=== PATIENT | female | born 1950 | race Caucasian/White ===

== ENCOUNTER 2017-02-24 12:04 | Emergency (ER) | payer MEDICARE, OTHER ==
[~2017-02-24] VITALS: Ht 152.4 cm; Wt 86.2 kg
[~2017-02-24 12:04] MED LIST: ALORA TP; AMT25T; ASCO-273 PO; ASP81TEC PO; ATEN25TA PO; ATOR20TA66 PO; ATR20T PO; C250T; CEPH-507 PO; CHOL4PAC19 PO; CIPR-225 PO; CLD600T PO; D50KC PO; DARI15TA4 PO; DVL500TSR PO; EQUATE ALLERGY MED PO; ESTR1TAB27 PO; ESTR42.52 VG; FAMO1TAB21 PO; FIBER CHOICE; FISH OIL; FLUT16SP22 NSEACH; FOLIC ACID; FURO40TA4 PO; GLIM2TAB PO; GLUCO/CHON; GUAI1TBM7 PO; HYDR1TAB86 PO; LEVO125T6 PO; LIRA0.6P SQ; LVT.1T PO; METF750T2 PO; MGX400T; MIRA50TA PO; MTF500T PO; MULT1TAB63 PO; NF-SITA50T PO; NFCHLORHGL; NITR-65 PO; NITR100C44 PO; NYST60PO TP; PHEN200T27 PO; PNT40TEC; POTA10CA43 PO; QUET300T PO; RABE20TA PO; SALINE NASAL SPRAY; SITA100T PO; SMV20T; SOLI10TA4 PO; TOLTA4; TPR25T; TRAV5DRO OU; TRIMOX; VENL150C53 PO; VNL75CCR; VNL75CCR PO; ZLP10T; [UNRECOGNIZED DRUG - OTHER]; [UNRECOGNIZED DRUG - OTHER]; [UNRECOGNIZED DRUG - OTHER]
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
[2017-02-24 12:14] LABS: BASOPHILS % (AUTO) 0 % (0-10); EOSINOPHILS # (AUTO) 0.2 10^3/uL (0.0-0.3); EOSINOPHILS % (AUTO) 2 % (0-10); LYMPHOCYTES % (AUTO) 42 % (12-44); MEAN CORPUSCULAR HEMOGLOBIN 30 PG (25-34); MEAN CORPUSCULAR HGB CONC 33 G/DL (32-36); MEAN CORPUSCULAR VOLUME 93 FL (80-99); MEAN PLATELET VOLUME 9.5 FL (7.4-10.4); MONOCYTES % (AUTO) 11 % (0-12); NEUTROPHILS # (AUTO) 4.2 X 10^3 (1.8-7.8); NEUTROPHILS % (AUTO) 45 % (42-75); PLATELET COUNT 264 10^3/uL (130-400); RED BLOOD COUNT 4.62 10^6/uL (4.35-5.85); RED CELL DISTRIBUTION WIDTH 13.2 % (10.0-14.5); WHITE BLOOD COUNT 9.4 10^3/uL (4.3-11.0)
[2017-02-24 12:28] LABS: INR 0.9 (0.8-1.4); PROTHROMBIN TIME PATIENT 11.8 SEC (12.2-14.7)
[2017-02-24 12:36] LABS: ANION GAP 12 MMOL/L (5-14); BLOOD UREA NITROGEN 14 MG/DL (7-18); BUN/CREATININE RATIO 20; CALCIUM 9.5 MG/DL (8.5-10.1); CARBON DIOXIDE 28 MMOL/L (21-32); CHLORIDE 103 MMOL/L (98-107); CREATININE SERUM 0.71 MG/DL (0.60-1.30); GFR ESTIMATED > 60; POTASSIUM 3.8 MMOL/L (3.6-5.0); SODIUM 143 MMOL/L (135-145)
[2017-02-24 12:38] LABS: GLUCOSE 54 MG/DL (70-105)
[2017-02-24 12:40] LABS: BILIRUBIN,URINE NEGATIVE (NEGATIVE); KETONES,URINE 1+ (NEGATIVE); LEUKOCYTE ESTERASE ,URINE 3+ (NEGATIVE); NITRITE,URINE NEGATIVE (NEGATIVE); PH,URINE 6 (5-9); PROTEIN,URINE 2+ (NEGATIVE); UROBILINOGEN,URINE NORMAL (NORMAL)
[2017-02-24 12:51] LABS: WBC,URINE 50-100 /HPF
[2017-02-24] MEDS: DEXTROSE 50% 50 ML (IMS) SYR IV ONE (12:54)
[2017-02-24] MEDS: cefTRIAXone INJECTION 1,000 MG in NS (IVPB) 50 ML IV ONE (13:27)
--- NOTE | 2017-02-24 13:32 | Diagnostic Imaging Report ---
PROCEDURE: CT head and CT cervical spine without contrast. TECHNIQUE: Multiple contiguous axial images were obtained through the brain and cervical spine without the use of intravenous contrast. Sagittal and coronal reformations through the cervical spine were then performed. INDICATION: Fall. CT HEAD / FINDINGS: There is no intracranial hemorrhage, edema or mass-effect. There is periventricular and deep white matter hypodensities compatible with chronic microvascular ischemic changes. There is stable mild dilatation of the lateral ventricles out of proportion to the rest of the CSF spaces which could correlate with normal pressure hydrocephalus. There is diffuse thickening of the calvarium seen, stable from prior exam. The visualized portions of the paranasal sinuses and orbits appear grossly unremarkable. CT CERVICAL SPINE / FINDINGS: There is reversal of the lordotic curvature. The alignment of the posterior spinal line is satisfactory. The alignment at the facet joints is also satisfactory. There is no widening of the predental space. Satisfactory alignment of the lateral masses of C1 and C2 and the atlantooccipital joints is seen. The vertebral body heights are preserved. Disc heights are generally preserved. There are slightly prominent anterior osteophytes noted at C5/6 and C6-7 levels. There is a prominent facet joint arthropathy with multilevel neural foramina stenosis. No fracture is seen. IMPRESSION: CT HEAD: Slight enlargement of the lateral ventricles out of proportion to the rest of the CSF spaces, may correlate with normal pressure hydrocephalus. White matter chronic ischemic changes. No intracranial hemorrhage. CT CERVICAL SPINE: Prominent degenerative changes. No fracture seen. Dictated by: Dictated on workstation # [id number]
[2017-02-24] MEDS ORDERED: CEFU250T80 PO (13:51)
[2017-02-24 14:00] VITALS: BP 103/56
== END 2017-02-24 14:00 | disposition home or self-care (01) ==
LOC: EDUNIT# 12:04 → ER 12:05
DX: S09.90XA Unspecified injury of head, initial encounter (principal); N39.0 Urinary tract infection, site not specified; E11.9 Type 2 diabetes mellitus without complications; Z79.84 Long term (current) use of oral hypoglycemic drugs; Z79.899 Other long term (current) drug therapy; Z87.820 Personal history of traumatic brain injury
CPT/HCPCS: 36415; 70450; 72125; 80048; 81000; 82962; 85025; 85610; 87077; 87088; 87186

== ENCOUNTER 2017-11-30 00:57 | Emergency (ER) | payer MEDICARE, OTHER ==
[~2017-11-30] VITALS: Ht 152.4 cm; Wt 79.4 kg
[~2017-11-30 00:57] MED LIST changes: +ALBI30PE; +ATOR40TA70; +CEFU250T80 PO; +DESM0.2T2; +IMIP50TA4; +NF-ACI30T PO
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
[2017-11-30] MEDS ORDERED: KETOROLAC 60 MG/2 ML VIAL IM ONE (02:30)
[2017-11-30] MEDS ORDERED: RX-TRAMADOL 50 MG (ULTRAM) TAB PPK#4 PO STA (02:47)
[2017-11-30] MEDS ORDERED: TRAM-42 PO (02:50)
[2017-11-30 02:53] VITALS: BP 104/90
--- NOTE | 2017-11-30 06:44 | Diagnostic Imaging Report ---
INDICATION: Fall with back pain. Multiple contiguous axial CT images of the thoracic and lumbar spine are obtained with sagittal and coronal reformatted images produced. Thoracic spine: Thoracic spinal curvature and alignment are within normal limits. There is diffuse endplate spurring with prominent osteophytes in the mid to lower thoracic region. No fracture is seen. There is no evidence of paraspinous hematoma. IMPRESSION: Thoracic spondylosis without acute abnormality identified. CT lumbar spine: There is advanced degenerative facet arthropathy at L5-S1 with grade 1 anterolisthesis of L5 on S1. Otherwise curvature and alignment are unremarkable. There is no evidence of fracture, dislocation or paraspinous hematoma. IMPRESSION: Lumbar spondylosis most pronounced at L5-S1 without acute abnormality detected. Dictated by: Dictated on workstation # [id number]
--- NOTE | 2017-11-30 07:00 | Diagnostic Imaging Report ---
PROCEDURE: CT head and CT cervical spine without contrast. TECHNIQUE: Multiple contiguous axial images were obtained through the brain and cervical spine without the use of intravenous contrast. Sagittal and coronal reformations through the cervical spine were then performed. INDICATION: Fall. Pain. COMPARISON: 02/24/2017. FINDINGS: Head CT: No acute intracranial hemorrhage, mass effect or edema is seen. There is diffuse atrophy. The ventricles are prominent but proportionate to degree of atrophy. Scattered areas of hypodensity in the periventricular white matter are likely related to chronic microvascular ischemic change. The paranasal sinuses and mastoids are clear as visualized. No evidence of basal skull fracture. Cervical spine CT: There is straightening of the normal cervical lordosis which is nonspecific but may be positional or muscular. No additional malalignment is seen. No acute fracture or osseous destructive process is seen. Vertebral body heights appear maintained. There is disc space narrowing and endplate spurring at C4-C5, C5-C6 and C6-C7. There is fairly prominent facet arthropathy throughout the cervical spine with multiple levels of foraminal stenosis. The prevertebral soft tissues appear unremarkable. IMPRESSION: 1. No evidence of an acute intracranial abnormality. Chronic senescent changes. 2. No evidence of an acute cervical spine fracture. Degenerative changes as described. Agree with [facility] interpretation. Dictated by: Dictated on workstation # [id number]
--- NOTE | 2017-11-30 07:00 | Diagnostic Imaging Report ---
PROCEDURE: CT pelvis without contrast. TECHNIQUE: Multiple contiguous axial images were obtained through the pelvis without the use of intravenous contrast. Sagittal and coronal reformations were performed. INDICATION: Fall. Pain. COMPARISON: 07/29/2017. FINDINGS: There is a new compound fracture of the lower sacrum just above the coccyx involving the anterior and posterior elements of the sacrum. There is minimal ventral displacement of the distal fragments. No additional acute fractures seen. There are postoperative changes from hardware removal in the proximal right femur. There are degenerative changes of the sacroiliac joints. There are degenerative changes in the visualized lower lumbar spine. IMPRESSION: Minimally displaced fracture of the distal sacrum just above the coccyx involving the anterior and posterior elements. Agree with [facility] interpretation. Dictated by: Dictated on workstation # [id number]
== END 2017-11-30 02:53 | disposition home or self-care (01) ==
LOC: EDUNIT# 00:57 → ER 00:59
DX: S06.9X9A Unspecified intracranial injury with loss of consciousness of unspecified duration, initial encounter (principal); S32.10XA Unspecified fracture of sacrum, initial encounter for closed fracture; R40.2142 Coma scale, eyes open, spontaneous, at arrival to emergency department; R40.2252 Coma scale, best verbal response, oriented, at arrival to emergency department; R40.2362 Coma scale, best motor response, obeys commands, at arrival to emergency department; F32.9 Major depressive disorder, single episode, unspecified; E03.9 Hypothyroidism, unspecified; I10 Essential (primary) hypertension; J45.909 Unspecified asthma, uncomplicated; G47.30 Sleep apnea, unspecified; E11.9 Type 2 diabetes mellitus without complications; K21.9 Gastro-esophageal reflux disease without esophagitis; K58.9 Irritable bowel syndrome, unspecified; F03.90 Unspecified dementia, unspecified severity, without behavioral disturbance, psychotic disturbance, mood disturbance, and anxiety; E78.00 Pure hypercholesterolemia, unspecified; Z77.22 Contact with and (suspected) exposure to environmental tobacco smoke (acute) (chronic); Z90.89 Acquired absence of other organs; Z90.710 Acquired absence of both cervix and uterus; Z87.81 Personal history of (healed) traumatic fracture; Z87.820 Personal history of traumatic brain injury; Z79.84 Long term (current) use of oral hypoglycemic drugs; Z88.5 Allergy status to narcotic agent
CPT/HCPCS: 70450; 72125; 72128; 72131; 72192; 96372

== ENCOUNTER 2018-02-05 02:01 | Emergency (ER) | payer MEDICARE, OTHER ==
[~2018-02-05] VITALS: Ht 152.4 cm; Wt 79.4 kg
[~2018-02-05 02:01] MED LIST changes: +TRAM-42 PO
--- OUTSIDE RECORDS SUMMARY | 2018-02-05 02:09 | XMS REPORT | Continuity of Care Document ---
Author Author [facility] Organization [facility] Address Unknown Phone Unavailable Allergies Active Description Code Type Severity Reaction Onset Reported/Identified Relationship to Patient Clinical Status Yes morphine [id number] Drug Allergy Unknown N/A 08/01/2008 Medications There is no data. Problems Date Dx Coded Attending Type Code Diagnosis Diagnosed By 03/24/2012 Ot 250.00 DIAB YORDY WO COMPL, TYPE II OR UNSPEC TY 03/24/2012 Ot 278.00 OBESITY, NOS 03/24/2012 Ot 285.9 ANEMIA NOS 03/24/2012 Ot 401.9 HYPERTENSION NOS 03/24/2012 Ot 493.90 ASTHMA, UNSPECIFIED 03/24/2012 Ot 780.57 UNSPECIFIED SLEEP APNEA 03/24/2012 Ot 782.0 SKIN SENSATION DISTURB 03/24/2012 Ot 786.09 RESPIRATORY ABNORM NEC 03/24/2012 Ot V17.49 FAMILY HISTORY OF OTHER CARDIOVASCULAR D 03/24/2012 Ot V58.69 OTH MED,LT, CURRENT USE 03/24/2012 Ot V85.41 BODY MASS INDEX 40.0-44.9, ADULT 08/09/2014 FELISA NAVAS DO Ot V76.12 08/19/2014 Ot V58.69 08/19/2014 Ot V58.83 08/19/2014 Ot 331.4 08/19/2014 Ot 349.89 08/19/2014 Ot V15.59 08/19/2014 Ot 793.0 08/19/2014 Ot 376.30 08/19/2014 Ot V81.5 08/19/2014 Ot V76.12 08/19/2014 Ot V58.69 08/19/2014 Ot V58.83 08/19/2014 Ot V76.12 08/19/2014 Ot V76.12 08/19/2014 Ot 681.00 08/19/2014 Ot 906.4 08/19/2014 Ot E929.9 08/19/2014 Ot 250.02 08/19/2014 Ot 729.5 08/19/2014 Ot 413.9 08/19/2014 Ot 272.4 08/19/2014 Ot 401.9 08/19/2014 Ot 780.79 08/19/2014 Ot 786.05 08/19/2014 Ot 794.30 08/19/2014 Ot V58.69 08/19/2014 Ot 458.0 08/19/2014 Ot 780.4 08/19/2014 Ot V76.12 08/19/2014 Ot 721.0 08/19/2014 Ot 599.70 08/19/2014 Ot 625.9 08/19/2014 Ot 789.09 08/19/2014 BA NAVAS SUSTAINMENT LOGISTICS ANALYST Ot V76.12 08/19/2014 DEREK CASEY, ADIS Ot 250.12 08/19/2014 FELISA NAVAS DO Ot V76.12 11/04/2014 BA NAVAS SUSTAINMENT LOGISTICS ANALYST Ot 331.4 11/04/2014 Ot V76.12 11/04/2014 Ot V58.69 11/04/2014 Ot V58.83 11/04/2014 Ot V76.12 11/04/2014 Ot V76.12 11/04/2014 Ot 681.00 11/04/2014 Ot 906.4 11/04/2014 Ot E929.9 11/04/2014 Ot 250.02 11/04/2014 Ot 729.5 11/04/2014 Ot 413.9 11/04/2014 Ot 272.4 11/04/2014 Ot 401.9 11/04/2014 Ot 780.79 11/04/2014 Ot 786.05 11/04/2014 Ot 794.30 11/04/2014 Ot V58.69 11/04/2014 Ot 458.0 11/04/2014 Ot 780.4 11/04/2014 Ot V76.12 11/04/2014 Ot 721.0 11/04/2014 Ot 599.70 11/04/2014 Ot 625.9 11/04/2014 Ot 789.09 11/04/2014 BA NAVAS SUSTAINMENT LOGISTICS ANALYST Ot V76.12 11/04/2014 DEREK CASEY, ADIS Ot 250.12 11/04/2014 FELISA NAVAS DO Ot V76.12 11/04/2014 BA NAVAS SUSTAINMENT LOGISTICS ANALYST Ot 331.4 11/04/2014 BA NAVASP Ot 331.4 11/04/2014 AB NAVAS SUSTAINMENT LOGISTICS ANALYST Ot 331.4 11/12/2014 BA NAVAS SUSTAINMENT LOGISTICS ANALYST Ot 331.4 11/18/2014 Ot V58.69 11/18/2014 Ot V58.83 11/18/2014 Ot V76.12 11/18/2014 Ot V76.12 11/18/2014 Ot 681.00 11/18/2014 Ot 906.4 11/18/2014 Ot E929.9 11/18/2014 Ot 250.02 11/18/2014 Ot 729.5 11/18/2014 Ot 413.9 11/18/2014 Ot 272.4 11/18/2014 Ot 401.9 11/18/2014 Ot 780.79 11/18/2014 Ot 786.05 11/18/2014 Ot 794.30 11/18/2014 Ot V58.69 11/18/2014 Ot 458.0 11/18/2014 Ot 780.4 11/18/2014 Ot V76.12 11/18/2014 Ot 721.0 11/18/2014 Ot 599.70 11/18/2014 Ot 625.9 11/18/2014 Ot 789.09 11/18/2014 BA NAVAS SUSTAINMENT LOGISTICS ANALYST Ot V76.12 11/18/2014 ADIS REED MD Ot 250.12 11/18/2014 FELISA NAVAS DO Ot V76.12 11/18/2014 BA NAVASP Ot 331.4 11/18/2014 Ot 596.51 11/18/2014 Ot 599.82 11/18/2014 Ot 788.30 11/18/2014 Ot V72.63 11/18/2014 Ot V74.8 11/18/2014 Ot V58.69 11/18/2014 Ot V58.83 11/18/2014 Ot V76.12 11/18/2014 Ot V76.12 11/18/2014 Ot 681.00 11/18/2014 Ot 906.4 11/18/2014 Ot E929.9 11/18/2014 Ot 250.02 11/18/2014 Ot 729.5 11/18/2014 Ot 413.9 11/18/2014 Ot 272.4 11/18/2014 Ot 401.9 11/18/2014 Ot 780.79 11/18/2014 Ot 786.05 11/18/2014 Ot 794.30 11/18/2014 Ot V58.69 11/18/2014 Ot 458.0 11/18/2014 Ot 780.4 11/18/2014 Ot V76.12 11/18/2014 Ot 721.0 11/18/2014 Ot 599.70 11/18/2014 Ot 625.9 11/18/2014 Ot 789.09 11/18/2014 BA NAVAS SUSTAINMENT LOGISTICS ANALYST Ot V76.12 11/18/2014 ADIS REED MD Ot 250.12 11/18/2014 FELISA NAVAS DO Ot V76.12 11/18/2014 BA NAVAS SUSTAINMENT LOGISTICS ANALYST Ot 331.4 11/18/2014 Ot 596.51 11/18/2014 Ot 599.82 11/18/2014 Ot 788.30 11/18/2014 Ot V72.63 11/18/2014 Ot V74.8 11/18/2014 Ot 250.00 DIAB YORDY WO COMPL, TYPE II OR UNSPEC TY 11/18/2014 Ot 401.9 HYPERTENSION NOS 11/18/2014 Ot 596.51 HYPERTONICITY OF BLADDER 11/18/2014 Ot 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 11/18/2014 Ot 788.30 UNSPECIFIED URINARY INCONTINENCE 11/21/2014 BA NAVAS SUSTAINMENT LOGISTICS ANALYST Ot 331.4 12/20/2014 BA NAVAS SUSTAINMENT LOGISTICS ANALYST Ot 331.4 01/01/2015 Ot 596.51 01/01/2015 Ot 599.82 01/01/2015 Ot 788.30 01/01/2015 Ot V72.63 01/01/2015 Ot V74.8 03/22/2015 BA NAVAS SUSTAINMENT LOGISTICS ANALYST Ot 331.4 04/18/2015 Ot V58.69 04/18/2015 Ot V58.83 04/18/2015 Ot V76.12 04/18/2015 Ot V76.12 04/18/2015 Ot 681.00 04/18/2015 Ot 906.4 04/18/2015 Ot E929.9 04/18/2015 Ot 250.02 04/18/2015 Ot 729.5 04/18/2015 Ot 413.9 04/18/2015 Ot 272.4 04/18/2015 Ot 401.9 04/18/2015 Ot 780.79 04/18/2015 Ot 786.05 04/18/2015 Ot 794.30 04/18/2015 Ot V58.69 04/18/2015 Ot 458.0 04/18/2015 Ot 780.4 04/18/2015 Ot V76.12 04/18/2015 Ot 721.0 04/18/2015 Ot 599.70 04/18/2015 Ot 625.9 04/18/2015 Ot 789.09 04/18/2015 BA NAVAS SUSTAINMENT LOGISTICS ANALYST Ot V76.12 04/18/2015 ADIS REED MD Ot 250.12 04/18/2015 FELISA NAVAS DO Ot V76.12 04/18/2015 BA NAVAS SUSTAINMENT LOGISTICS ANALYST Ot 331.4 04/18/2015 Ot 596.51 04/18/2015 Ot 599.82 04/18/2015 Ot 788.30 04/18/2015 Ot V72.63 04/18/2015 Ot V74.8 06/18/2015 JEFF CASEY, ROSY Anderson Ot 596.51 HYPERTONICITY OF BLADDER 06/18/2015 JEFF CASEY, ROSY Anderson Ot 599.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 06/18/2015 JEFF CASEY, ROSY Anderson Ot 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, MIDLINE 06/18/2015 ROSY AGUILAR MD Ot 788.30 UNSPECIFIED URINARY INCONTINENCE 06/18/2015 ROSY AGUILAR MD Ot V58.69 OT MED,LT,CURRENT USE 07/02/2015 ROSY AGUILAR MD Ot 596.51 07/02/2015 ROSY AGUILAR MD Ot 599.82 07/02/2015 ROSY AGUILAR MD Ot 788.30 07/02/2015 ROSY AGUILAR MD Ot V72.63 07/02/2015 ROSY AGUILAR MD Ot V74.8 07/21/2015 Ot V76.12 07/21/2015 Ot V76.12 07/21/2015 Ot 681.00 07/21/2015 Ot 906.4 07/21/2015 Ot E929.9 07/21/2015 Ot 250.02 07/21/2015 Ot 729.5 07/21/2015 Ot 413.9 07/21/2015 Ot 272.4 07/21/2015 Ot 401.9 07/21/2015 Ot 780.79 07/21/2015 Ot 786.05 07/21/2015 Ot 794.30 07/21/2015 Ot V58.69 07/21/2015 Ot 458.0 07/21/2015 Ot 780.4 07/21/2015 Ot V76.12 07/21/2015 Ot 721.0 07/21/2015 Ot 599.70 07/21/2015 Ot 625.9 07/21/2015 Ot 789.09 07/21/2015 BA NAVAS SUSTAINMENT LOGISTICS ANALYST Ot V76.12 07/21/2015 DEREK CASEY, ADIS Ot 250.12 07/21/2015 FELISA NAVAS DO Ot V76.12 07/21/2015 BA NAVAS SUSTAINMENT LOGISTICS ANALYST Ot 331.4 07/21/2015 Ot 596.51 07/21/2015 Ot 599.82 07/21/2015 Ot 788.30 07/21/2015 Ot V72.63 07/21/2015 Ot V74.8 07/21/2015 JEFF CASEY, ROSY Anderson Ot 596.51 07/21/2015 JEFF CASEY, ROSY Anderson Ot 599.82 07/21/2015 JEFF CASEY, ROSY Anderson Ot 788.30 07/21/2015 JEFF CASEY, ROSY Anderson Ot V72.63 07/21/2015 JEFF CASEY, ROSY Anderson Ot V74.8 08/13/2015 BA NAVASP Ot N64.4 08/26/2015 Ot V76.12 08/26/2015 Ot V76.12 08/26/2015 Ot 681.00 08/26/2015 Ot 906.4 08/26/2015 Ot E929.9 08/26/2015 Ot 250.02 08/26/2015 Ot 729.5 08/26/2015 Ot 413.9 08/26/2015 Ot 272.4 08/26/2015 Ot 401.9 08/26/2015 Ot 780.79 08/26/2015 Ot 786.05 08/26/2015 Ot 794.30 08/26/2015 Ot V58.69 08/26/2015 Ot 458.0 08/26/2015 Ot 780.4 08/26/2015 Ot V76.12 08/26/2015 Ot 721.0 08/26/2015 Ot 599.70 08/26/2015 Ot 625.9 08/26/2015 Ot 789.09 08/26/2015 BA NAVAS SUSTAINMENT LOGISTICS ANALYST Ot V76.12 08/26/2015 DEREK CASEY, ADIS Ot 250.12 08/26/2015 FELISA NAVAS DO Ot V76.12 08/26/2015 BA NAVAS SUSTAINMENT LOGISTICS ANALYST Ot 331.4 08/26/2015 Ot 596.51 08/26/2015 Ot 599.82 08/26/2015 Ot 788.30 08/26/2015 Ot V72.63 08/26/2015 Ot V74.8 08/26/2015 JEFF CASEY, ROSY Anderson Ot 596.51 08/26/2015 JEFF CASEY, ROSY Anderson Ot 599.82 08/26/2015 JEFF CASEY, ROSY Anderson Ot 788.30 08/26/2015 JEFF CASEY, ROSY Anderson Ot V72.63 08/26/2015 JEFF CASEY, ROSY Anderson Ot V74.8 08/26/2015 BA NAVAS SUSTAINMENT LOGISTICS ANALYST Ot N64.4 08/28/2015 BA NAVAS SUSTAINMENT LOGISTICS ANALYST Ot N64.4 06/29/2016 Ot V76.12 OTH SCREEN MAMMO-MALIGN NEOPLASM OF YENNI 06/29/2016 Ot 681.00 CELLULITIS, FINGER NOS 06/29/2016 Ot 906.4 LATE EFFECT OF CRUSHING 06/29/2016 Ot E929.9 LATE EFF ACCIDENT NOS 06/29/2016 Ot 250.02 DIAB YORDY WO COMPL, TYPE II OR UNSPEC TY 06/29/2016 Ot 729.5 PAIN IN LIMB 06/29/2016 Ot 413.9 ANGINA PECTORIS NEC/NOS 06/29/2016 Ot 272.4 HYPERLIPIDEMIA NEC/NOS 06/29/2016 Ot 401.9 HYPERTENSION NOS 06/29/2016 Ot 780.79 OTH MALAISE FATIGUE 06/29/2016 Ot 786.05 SHORTNESS OF BREATH 06/29/2016 Ot 794.30 ABN CARDIOVASC STUDY NOS 06/29/2016 Ot V58.69 OTH MED,LT, CURRENT USE 06/29/2016 Ot 458.0 ORTHOSTATIC HYPOTENSION 06/29/2016 Ot 780.4 DIZZINESS AND GIDDINESS 06/29/2016 Ot V76.12 OTH SCREEN MAMMO-MALIGN NEOPLASM OF YENNI 06/29/2016 Ot 721.0 CERVICAL SPONDYLOSIS 06/29/2016 Ot 599.70 HEMATURIA, UNSPECIFIED 06/29/2016 Ot 625.9 FEM GENITAL SYMPTOMS NOS 06/29/2016 Ot 789.09 ABDOMINAL PAIN, OTHER SPECIFIED SITE 06/29/2016 BA NAVAS SUSTAINMENT LOGISTICS ANALYST Ot V76.12 OTH SCREEN MAMMO-MALIGN NEOPLASM OF YENNI 06/29/2016 DEREK CASEY, ADIS Ot 250.12 DIAB W KETOACIDOSIS, TYPE II OR UNSPEC T 06/29/2016 FELISA NAVAS DO Ot V76.12 OTH SCREEN MAMMO-MALIGN NEOPLASM OF YENNI 06/29/2016 BA NAVASP Ot 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 06/29/2016 Ot 596.51 HYPERTONICITY OF BLADDER 06/29/2016 Ot 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 06/29/2016 Ot 788.30 UNSPECIFIED URINARY INCONTINENCE 06/29/2016 Ot V72.63 PRE- PROCEDURAL LABORATORY EXAMINATION 06/29/2016 Ot V74.8 SCREEN- BACTERIAL DIS NEC 06/29/2016 ROSY AGUILAR MD Ot 596.51 HYPERTONICITY OF BLADDER 06/29/2016 ROSY AGUILAR MD Ot 599.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 06/29/2016 ROSY AGUILAR MD Ot 788.30 UNSPECIFIED URINARY INCONTINENCE 06/29/2016 ROSY AGUILAR MD Ot V72.63 PRE-PROCEDURAL LABORATORY EXAMINATION 06/29/2016 ROSY AGUILAR MD Ot V74.8 SCREEN-BACTERIAL DIS NEC 06/29/2016 BA NAVAS SUSTAINMENT LOGISTICS ANALYST Ot N64.4 MASTODYNIA 06/29/2016 GIOVANA SHARMA MD Ot E11.9 TYPE 2 DIABETES MELLITUS WITHOUT COMPLIC 06/29/2016 GIOVANA SHARMA MD, Ot 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 W/O MYELOPATHY OR RADICULOPA 06/29/2016 GIOVANA SHARMA MD, Ot M85.2 HYPEROSTOSIS OF SKULL 06/29/2016 GIOVANA SHARMA MD, Ot S19.9XXA UNSPECIFIED INJURY OF NECK, INITIAL ENCO 06/29/2016 GIOVANA SHARMA MD Ot W01.0XXA FALL SAME LEV FROM SLIP/TRIP W/O STRIKE 06/29/2016 GIOVANA SHARMA MD, Ot Y92.[address] [facility] 06/29/2016 GIOVANA SHARMA MD, Ot Y99.8 OTHER EXTERNAL CAUSE STATUS 06/29/2016 GIOVANA SHARMA MD, Ot Z79.899 OTHER [facility] (CURRENT) DRUG THERAPY 06/29/2016 GIOVANA SHARMA MD, Ot Z87.820 PERSONAL HISTORY OF TRAUMATIC BRAIN INJU 06/30/2016 GIOVANA SHARMA MD, Ot E11.9 TYPE 2 DIABETES MELLITUS WITHOUT COMPLIC 06/30/2016 GIOVANA SHARMA MD, Ot 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 W/O MYELOPATHY OR RADICULOPA 06/30/2016 GIOVANA SHARMA MD, Ot M85.2 HYPEROSTOSIS OF SKULL 06/30/2016 GIOVANA SHARMA MD, Ot S19.9XXA UNSPECIFIED INJURY OF NECK, INITIAL ENCO 06/30/2016 GIOVANA SHARMA MD, Ot W01.0XXA FALL SAME LEV FROM SLIP/TRIP W/O STRIKE 06/30/2016 GIOVANA SHARMA MD, Ot Y92.[address] [facility] ([facility] 06/30/2016 GIOVANA SHARMA MD, Ot Y99.8 OTHER EXTERNAL CAUSE STATUS 06/30/2016 GIOVANA SHARMA MD, Ot 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 06/30/2016 GIOVANA SHARMA MD, Ot Z87.820 PERSONAL HISTORY OF TRAUMATIC BRAIN INJU 08/26/2016 RAGHU ZAIDI MD Ot E11.9 TYPE 2 DIABETES MELLITUS WITHOUT COMPLIC 08/26/2016 RAGHU ZAIDI MD Ot I10 ESSENTIAL (PRIMARY) HYPERTENSION 08/26/2016 RAGHU ZAIDI MD Ot M47.819 SPONDYLOSIS WITHOUT MYELOPATHY OR RADICU 08/26/2016 RAGHU ZAIDI MD Ot N39.0 URINARY TRACT INFECTION, SITE NOT SPECIF 08/26/2016 RAGHU ZAIDI MD Ot S00.03XA CONTUSION OF SCALP, INITIAL ENCOUNTER 08/26/2016 RAGHU ZAIDI MD Ot S09.90XA UNSPECIFIED INJURY OF HEAD, INITIAL ENCO 08/26/2016 RAGHU ZAIDI MD Ot W01.0XXA FALL SAME LEV FROM SLIP/TRIP W/O STRIKE 08/26/2016 RAGHU ZAIDI MD Ot Y92.[address] [facility] NON-INSTITUT (PRIVATE 08/26/2016 RAGHU ZAIDI MD Ot Y93.9 ACTIVITY, UNSPECIFIED 08/26/2016 RAGHU ZAIDI MD Ot Y99.8 OTHER EXTERNAL CAUSE STATUS 08/26/2016 RAGHU ZAIDI MD Ot Z79.84 [facility] (CURRENT) USE OF ORAL HYPOGLYC 08/26/2016 RAGHU ZAIDI MD Ot Z79.899 OTHER [facility] (CURRENT) DRUG THERAPY 08/26/2016 RAGHU ZAIDI MD Ot Z87.820 PERSONAL HISTORY OF TRAUMATIC BRAIN INJU 08/26/2016 Ot V76.12 OTH SCREEN MAMMO-MALIGN NEOPLASM OF YENNI 08/26/2016 Ot 681.00 CELLULITIS, FINGER NOS 08/26/2016 Ot 906.4 LATE EFFECT OF CRUSHING 08/26/2016 Ot E929.9 LATE EFF ACCIDENT NOS 08/26/2016 Ot 250.02 DIAB YORDY WO COMPL, TYPE II OR UNSPEC TY 08/26/2016 Ot 729.5 PAIN IN LIMB 08/26/2016 Ot 413.9 ANGINA PECTORIS NEC/NOS 08/26/2016 Ot 272.4 HYPERLIPIDEMIA NEC/NOS 08/26/2016 Ot 401.9 HYPERTENSION NOS 08/26/2016 Ot 780.79 OTH MALAISE FATIGUE 08/26/2016 Ot 786.05 SHORTNESS OF BREATH 08/26/2016 Ot 794.30 ABN CARDIOVASC STUDY NOS 08/26/2016 Ot V58.69 OTH MED,LT, CURRENT USE 08/26/2016 Ot 458.0 ORTHOSTATIC HYPOTENSION 08/26/2016 Ot 780.4 DIZZINESS AND GIDDINESS 08/26/2016 Ot V76.12 OTH SCREEN MAMMO-MALIGN NEOPLASM OF YENNI 08/26/2016 Ot 721.0 CERVICAL SPONDYLOSIS 08/26/2016 Ot 599.70 HEMATURIA, UNSPECIFIED 08/26/2016 Ot 625.9 FEM GENITAL SYMPTOMS NOS 08/26/2016 Ot 789.09 ABDOMINAL PAIN, OTHER SPECIFIED SITE 08/26/2016 BA NAVAS Ot V76.12 OTH SCREEN MAMMO-MALIGN NEOPLASM OF YENNI 08/26/2016 DEREK CASEY, ADIS Ot 250.12 DIAB W KETOACIDOSIS, TYPE II OR UNSPEC T 08/26/2016 FELISA NAVAS DO Ot V76.12 OTH SCREEN MAMMO-MALIGN NEOPLASM OF YENNI 08/26/2016 BA NAVAS SUSTAINMENT LOGISTICS ANALYST Ot 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 08/26/2016 Ot 596.51 HYPERTONICITY OF BLADDER 08/26/2016 Ot 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 08/26/2016 Ot 788.30 UNSPECIFIED URINARY INCONTINENCE 08/26/2016 Ot V72.63 PRE- PROCEDURAL LABORATORY EXAMINATION 08/26/2016 Ot V74.8 SCREEN- BACTERIAL DIS NEC 08/26/2016 ROSY AGUILAR MD Ot 596.51 HYPERTONICITY OF BLADDER 08/26/2016 ROSY AGUILAR MD Ot 599.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 08/26/2016 ROSY AGUILAR MD Ot 788.30 UNSPECIFIED URINARY INCONTINENCE 08/26/2016 ROSY AGUILAR MD Ot V72.63 PRE-PROCEDURAL LABORATORY EXAMINATION 08/26/2016 ROSY AGUILAR MD Ot V74.8 SCREEN-BACTERIAL DIS NEC 08/26/2016 BA NAVAS SUSTAINMENT LOGISTICS ANALYST Ot N64.4 MASTODYNIA 08/27/2016 RAGHU ZAIDI MD Ot E11.9 TYPE 2 DIABETES MELLITUS WITHOUT COMPLIC 08/27/2016 RAGHU ZAIDI MD Ot I10 ESSENTIAL (PRIMARY) HYPERTENSION 08/27/2016 RAGHU ZAIDI MD Ot M47.819 SPONDYLOSIS WITHOUT MYELOPATHY OR RADICU 08/27/2016 RAGHU ZAIDI MD Ot N39.0 URINARY TRACT INFECTION, SITE NOT SPECIF 08/27/2016 RAGHU ZAIDI MD Ot S00.03XA CONTUSION OF SCALP, INITIAL ENCOUNTER 08/27/2016 RAGHU ZAIDI MD Ot S09.90XA UNSPECIFIED INJURY OF HEAD, INITIAL ENCO 08/27/2016 RAGHU ZAIDI MD Ot W01.0XXA FALL SAME LEV FROM SLIP/TRIP W/O STRIKE 08/27/2016 RAGHU ZAIDI MD Ot Y92.[address] [facility] NON-INSTITUT (PRIVATE 08/27/2016 RAGHU ZAIDI MD Ot Y93.9 ACTIVITY, UNSPECIFIED 08/27/2016 RAGHU ZAIDI MD Ot Y99.8 OTHER EXTERNAL CAUSE STATUS 08/27/2016 RAGHU ZAIDI MD Ot Z79.84 [facility] (CURRENT) USE OF ORAL HYPOGLYC 08/27/2016 RAGHU ZAIDI MD Ot 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 08/27/2016 RAGHU ZAIDI MD Ot Z87.820 PERSONAL HISTORY OF TRAUMATIC BRAIN INJU 02/24/2017 Ot 250.02 DIAB YORDY WO COMPL, TYPE II OR UNSPEC TY 02/24/2017 Ot 729.5 PAIN IN LIMB 02/24/2017 Ot 413.9 ANGINA PECTORIS NEC/NOS 02/24/2017 Ot 272.4 HYPERLIPIDEMIA NEC/NOS 02/24/2017 Ot 401.9 HYPERTENSION NOS 02/24/2017 Ot 780.79 OTH MALAISE FATIGUE 02/24/2017 Ot 786.05 SHORTNESS OF BREATH 02/24/2017 Ot 794.30 ABN CARDIOVASC STUDY NOS 02/24/2017 Ot V58.69 OTH MED,LT, CURRENT USE 02/24/2017 Ot 458.0 ORTHOSTATIC HYPOTENSION 02/24/2017 Ot 780.4 DIZZINESS AND GIDDINESS 02/24/2017 Ot V76.12 OTH SCREEN MAMMO-MALIGN NEOPLASM OF YENNI 02/24/2017 Ot 721.0 CERVICAL SPONDYLOSIS 02/24/2017 Ot 599.70 HEMATURIA, UNSPECIFIED 02/24/2017 Ot 625.9 FEM GENITAL SYMPTOMS NOS 02/24/2017 Ot 789.09 ABDOMINAL PAIN, OTHER SPECIFIED SITE 02/24/2017 BA NAVAS Ot V76.12 OTH SCREEN MAMMO-MALIGN NEOPLASM OF YENNI 02/24/2017 DEREK CASEY, ADIS Ot 250.12 DIAB W KETOACIDOSIS, TYPE II OR UNSPEC T 02/24/2017 FELISA NAVAS DO Ot V76.12 OTH SCREEN MAMMO-MALIGN NEOPLASM OF YNENI 02/24/2017 BA NAVAS SUSTAINMENT LOGISTICS ANALYST Ot 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 02/24/2017 Ot 596.51 HYPERTONICITY OF BLADDER 02/24/2017 Ot 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 02/24/2017 Ot 788.30 UNSPECIFIED URINARY INCONTINENCE 02/24/2017 Ot V72.63 PRE- PROCEDURAL LABORATORY EXAMINATION 02/24/2017 Ot V74.8 SCREEN- BACTERIAL DIS NEC 02/24/2017 JEFF CASEY, ROSY Anderson Ot 596.51 HYPERTONICITY OF BLADDER 02/24/2017 ROSY AGUILAR MD Ot 599.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 02/24/2017 ROSY AGUILAR MD Ot 788.30 UNSPECIFIED URINARY INCONTINENCE 02/24/2017 ROSY AGUILAR MD Ot V72.63 PRE-PROCEDURAL LABORATORY EXAMINATION 02/24/2017 ROSY AGUILAR MD Ot V74.8 SCREEN-BACTERIAL DIS NEC 02/24/2017 BA NAVAS Ot N64.4 MASTODYNIA 02/24/2017 MAUREEN KAYE APRN Ot E11.9 TYPE 2 DIABETES MELLITUS WITHOUT COMPLIC 02/24/2017 MAUREEN KAYE APRN Ot N39.0 URINARY TRACT INFECTION, SITE NOT SPECIF 02/24/2017 MAUREEN KAYE APRN Ot S09.90XA UNSPECIFIED INJURY OF HEAD, INITIAL ENCO 02/24/2017 MAUREEN KAYE APRN Ot Z79.84 [facility] (CURRENT) USE OF ORAL HYPOGLYC 02/24/2017 MAUREEN KAYE APRN Ot Z79.899 OTHER [facility] (CURRENT) DRUG THERAPY 02/24/2017 MAUREEN KAYE APRN Ot Z87.820 PERSONAL HISTORY OF TRAUMATIC BRAIN INJU 02/27/2017 MAUREEN KAYE APRN Ot E11.9 TYPE 2 DIABETES MELLITUS WITHOUT COMPLIC 02/27/2017 MAUREEN KAYE APRN Ot N39.0 URINARY TRACT INFECTION, SITE NOT SPECIF 02/27/2017 MAUREEN KAYE APRN Ot S09.90XA UNSPECIFIED INJURY OF HEAD, INITIAL ENCO 02/27/2017 MAUREEN KAYE APRN Ot 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 02/27/2017 MAUREEN KAYE APRN Ot 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 02/27/2017 MAUREEN KAYE APRN Ot Z87.820 PERSONAL HISTORY OF TRAUMATIC BRAIN INJU 02/28/2017 MAUREEN KAYE APRN Ot E11.9 TYPE 2 DIABETES MELLITUS WITHOUT COMPLIC 02/28/2017 MAUREEN KAYE APRN Ot N39.0 URINARY TRACT INFECTION, SITE NOT SPECIF 02/28/2017 MAUREEN KAYE APRN Ot S09.90XA UNSPECIFIED INJURY OF HEAD, INITIAL ENCO 02/28/2017 MAUREEN KAYE APRN Ot Z79.84 [facility] (CURRENT) USE OF ORAL HYPOGLYC 02/28/2017 MAUREEN AKYE APRN Ot 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 02/28/2017 MAUREEN KAYE APRN Ot Z87.820 PERSONAL HISTORY OF TRAUMATIC BRAIN INJU 03/03/2017 MAUREEN KAYE APRN Ot E11.9 TYPE 2 DIABETES MELLITUS WITHOUT COMPLIC 03/03/2017 MAUREEN KAYE APRN Ot N39.0 URINARY TRACT INFECTION, SITE NOT SPECIF 03/03/2017 MAUREEN KAYE APRN Ot S09.90XA UNSPECIFIED INJURY OF HEAD, INITIAL ENCO 03/03/2017 MAUREEN KAYE APRN Ot 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 03/03/2017 MAUREEN KAYE APRN Ot 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 03/03/2017 MAUREEN KAYE APRN Ot Z87.820 PERSONAL HISTORY OF TRAUMATIC BRAIN INJU 07/29/2017 JARED FLORES DOA K Ot E03.9 HYPOTHYROIDISM, UNSPECIFIED 07/29/2017 JARED FLORES DOA K Ot E11.9 TYPE 2 DIABETES MELLITUS WITHOUT COMPLIC 07/29/2017 MARK DO, MARGO K Ot E78.00 PURE HYPERCHOLESTEROLEMIA, UNSPECIFIED 07/29/2017 MARK DO, MARGO K Ot F03.90 UNSPECIFIED DEMENTIA WITHOUT BEHAVIORAL 07/29/2017 MARK DO MARGO K Ot F32.9 MAJOR DEPRESSIVE DISORDER, SINGLE EPISOD 07/29/2017 MARK DO MARGO K Ot I10 ESSENTIAL (PRIMARY) HYPERTENSION 07/29/2017 MARK DO MARGO K Ot K21.9 GASTRO-ESOPHAGEAL REFLUX DISEASE WITHOUT 07/29/2017 MARK DO, MARGO K Ot K59.00 CONSTIPATION, UNSPECIFIED 07/29/2017 MARK DO MARGO K Ot N39.0 URINARY TRACT INFECTION, SITE NOT SPECIF 07/29/2017 MARK JARED DIAZA K Ot Z79.84 [facility] (CURRENT) USE OF ORAL HYPOGLYC 07/29/2017 MARK DO MARGO K Ot Z87.828 PERSONAL HISTORY OF OTH (HEALED) PHYSICA 07/29/2017 MARK JARED DIAZA K Ot Z90.710 ACQUIRED ABSENCE OF BOTH CERVIX AND UTER 07/29/2017 MARK DOJAREDA K Ot Z90.89 ACQUIRED ABSENCE OF OTHER ORGANS 11/30/2017 MARK DOJAREDA K Ot E03.9 HYPOTHYROIDISM, UNSPECIFIED 11/30/2017 MARK DOJAREDA K Ot E11.9 TYPE 2 DIABETES MELLITUS WITHOUT COMPLIC 11/30/2017 MARK DO MARGO K Ot E78.00 PURE HYPERCHOLESTEROLEMIA, UNSPECIFIED 11/30/2017 MARK DO MARGO K Ot F03.90 UNSPECIFIED DEMENTIA WITHOUT BEHAVIORAL 11/30/2017 MARK DOJAREDA K Ot F32.9 MAJOR DEPRESSIVE DISORDER, SINGLE EPISOD 11/30/2017 MARK DO MARGO K Ot G47.30 SLEEP APNEA, UNSPECIFIED 11/30/2017 MARK DO MARGO K Ot I10 ESSENTIAL (PRIMARY) HYPERTENSION 11/30/2017 MARK DO MARGO K Ot J45.909 UNSPECIFIED ASTHMA, UNCOMPLICATED 11/30/2017 MARK DO MARGO K Ot K21.9 GASTRO-ESOPHAGEAL REFLUX DISEASE WITHOUT 11/30/2017 MARK DO MARGO K Ot K58.9 IRRITABLE BOWEL SYNDROME WITHOUT DIARRHE 11/30/2017 MARK DO, MARGO K Ot R40.2142 COMA SCALE, EYES OPEN, SPONTANEOUS, EMR 11/30/2017 MARK DIAZMARGO Ot R40.2252 COMA SCALE, BEST VERBAL RESPONSE, ORIENT 11/30/2017 MARK DIAZJAREDA Annmarie Ot R40.2362 COMA SCALE, BEST MOTOR RESPONSE, OBEYS C 11/30/2017 MARK MARGO Annmarie Ot S00.83XA CONTUSION OF OTHER PART OF HEAD, INITIAL 11/30/2017 MARGO FLORES DO Ot S06.9X9A UNSP INTRACRANIAL INJURY W LOC OF UNSP D 11/30/2017 MARKMARGO Pedersen DO Ot S32.10XA UNSP FRACTURE OF SACRUM, INIT ENCNTR FOR 11/30/2017 MARGO FLORES DO Ot Z77.22 CNTCT W AND EXPSR TO ENVIRON TOBACCO SMO 11/30/2017 MARGO FLORES DO Ot 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 11/30/2017 MARGO FLORES DO Ot Z87.81 PERSONAL HISTORY OF (HEALED) TRAUMATIC F 11/30/2017 MARGO FLORES DO Ot Z87.820 PERSONAL HISTORY OF TRAUMATIC BRAIN INJU 11/30/2017 MARGO FLORES DO Ot Z88.5 ALLERGY STATUS TO NARCOTIC AGENT STATUS 11/30/2017 MARGO FLORES DO Ot Z90.710 ACQUIRED ABSENCE OF BOTH CERVIX AND UTER 11/30/2017 MARGO FLORES DO Ot Z90.89 ACQUIRED ABSENCE OF OTHER ORGANS 12/02/2017 MARGO FLORES DO Ot E03.9 HYPOTHYROIDISM, UNSPECIFIED 12/02/2017 MARGO FLORES DO Ot E11.9 TYPE 2 DIABETES MELLITUS WITHOUT COMPLIC 12/02/2017 MARGO FLORES DO Ot E78.00 PURE HYPERCHOLESTEROLEMIA, UNSPECIFIED 12/02/2017 MARGO FLORES DO Ot F03.90 UNSPECIFIED DEMENTIA WITHOUT BEHAVIORAL 12/02/2017 MARGO FLORES DO Ot F32.9 MAJOR DEPRESSIVE DISORDER, SINGLE EPISOD 12/02/2017 MARGO FLORES DO Ot G47.30 SLEEP APNEA, UNSPECIFIED 12/02/2017 MARGO FLORES DO Ot I10 ESSENTIAL (PRIMARY) HYPERTENSION 12/02/2017 MARGO FLORES DO Ot J45.909 UNSPECIFIED ASTHMA, UNCOMPLICATED 12/02/2017 MARGO FLORES DO Ot K21.9 GASTRO-ESOPHAGEAL REFLUX DISEASE WITHOUT 12/02/2017 MARGO FLORES DO Ot K58.9 IRRITABLE BOWEL SYNDROME WITHOUT DIARRHE 12/02/2017 MARGO FLORES DO Ot R40.2142 COMA SCALE, EYES OPEN, SPONTANEOUS, EMR 12/02/2017 MARGO FLORES DO, Ot R40.2252 COMA SCALE, BEST VERBAL RESPONSE, ORIENT 12/02/2017 MARGO FLORES DO Ot R40.2362 COMA SCALE, BEST MOTOR RESPONSE, OBEYS C 12/02/2017 MARGO FLORES DO Ot S00.83XA CONTUSION OF OTHER PART OF HEAD, INITIAL 12/02/2017 MARGO FLORES DO, Ot S06.9X9A UNSP INTRACRANIAL INJURY W LOC OF UNSP D 12/02/2017 MARGO FLORES DO Ot S32.10XA UNSP FRACTURE OF SACRUM, INIT ENCNTR FOR 12/02/2017 MARGO FLORES DO, Ot Z77.22 CNTCT W AND EXPSR TO ENVIRON TOBACCO SMO 12/02/2017 MARGO FLORES DO Ot Z79.84 [facility] (CURRENT) USE OF ORAL HYPOGLYC 12/02/2017 MARGO FLORES DO, Ot Z87.81 PERSONAL HISTORY OF (HEALED) TRAUMATIC F 12/02/2017 MARGO FLORES DO, Ot Z87.820 PERSONAL HISTORY OF TRAUMATIC BRAIN INJU 12/02/2017 MARGO FLORES DO, Ot Z88.5 ALLERGY STATUS TO NARCOTIC AGENT STATUS 12/02/2017 MARGO FLORES DO Ot Z90.710 ACQUIRED ABSENCE OF BOTH CERVIX AND UTER 12/02/2017 MARGO FLORES DO Ot Z90.89 ACQUIRED ABSENCE OF OTHER ORGANS 12/02/2017 MARGO FLORES DO Ot E03.9 HYPOTHYROIDISM, UNSPECIFIED 12/02/2017 MARGO FLORES DO Ot E11.9 TYPE 2 DIABETES MELLITUS WITHOUT COMPLIC 12/02/2017 MARGO FLORES DO Ot E78.00 PURE HYPERCHOLESTEROLEMIA, UNSPECIFIED 12/02/2017 MARGO FLORES DO Ot F03.90 UNSPECIFIED DEMENTIA WITHOUT BEHAVIORAL 12/02/2017 MARGO FLORES DO Ot F32.9 MAJOR DEPRESSIVE DISORDER, SINGLE EPISOD 12/02/2017 MARGO FLORES DO Ot G47.30 SLEEP APNEA, UNSPECIFIED 12/02/2017 MARK DIAZ MARGO Annmarie Ot I10 ESSENTIAL (PRIMARY) HYPERTENSION 12/02/2017 MARK DIAZ MARGO Anguiano Ot J45.909 UNSPECIFIED ASTHMA, UNCOMPLICATED 12/02/2017 MARK DIAZ MARGO Annmarie Ot K21.9 GASTRO-ESOPHAGEAL REFLUX DISEASE WITHOUT 12/02/2017 MARK DIAZ MARGO Annmarie Ot K58.9 IRRITABLE BOWEL SYNDROME WITHOUT DIARRHE 12/02/2017 MARK DIAZ MARGO Annmarie Ot R40.2142 COMA SCALE, EYES OPEN, SPONTANEOUS, EMR 12/02/2017 MARK DIAZ MARGO Annmarie Ot R40.2252 COMA SCALE, BEST VERBAL RESPONSE, ORIENT 12/02/2017 MARK DIAZ MARGO Annmarie Ot R40.2362 COMA SCALE, BEST MOTOR RESPONSE, OBEYS C 12/02/2017 MARK DIAZ MARGO Annmarie Ot S00.83XA CONTUSION OF OTHER PART OF HEAD, INITIAL 12/02/2017 MARK DIAZ MARGO Anguiano Ot S06.9X9A UNSP INTRACRANIAL INJURY W LOC OF UNSP D 12/02/2017 MARK DIAZ MARGO Annmarie Ot S32.10XA UNSP FRACTURE OF SACRUM, INIT ENCNTR FOR 12/02/2017 MARK DIAZ MARGO Anguiano Ot Z77.22 CNTCT W AND EXPSR TO ENVIRON TOBACCO SMO 12/02/2017 MARK DIAZ MARGO Annmarie Ot Z79.84 [facility] (CURRENT) USE OF ORAL HYPOGLYC 12/02/2017 MARK MARGO Annmarie Ot Z87.81 PERSONAL HISTORY OF (HEALED) TRAUMATIC F 12/02/2017 MARK DIAZ MARGO Annmarie Ot Z87.820 PERSONAL HISTORY OF TRAUMATIC BRAIN INJU 12/02/2017 MARK DIAZ MARGO Annmarie Ot Z88.5 ALLERGY STATUS TO NARCOTIC AGENT STATUS 12/02/2017 MARK DIAZ MARGO Annmarie Ot Z90.710 ACQUIRED ABSENCE OF BOTH CERVIX AND UTER 12/02/2017 MARK MARGO Annmarie Ot Z90.89 ACQUIRED ABSENCE OF OTHER ORGANS 12/02/2017 Ot 458.0 ORTHOSTATIC HYPOTENSION 12/02/2017 Ot 780.4 DIZZINESS AND GIDDINESS 12/02/2017 Ot V76.12 OTH SCREEN MAMMO-MALIGN NEOPLASM OF YENNI 12/02/2017 Ot 721.0 CERVICAL SPONDYLOSIS 12/02/2017 Ot 599.70 HEMATURIA, UNSPECIFIED 12/02/2017 Ot 625.9 FEM GENITAL SYMPTOMS NOS 12/02/2017 Ot 789.09 ABDOMINAL PAIN, OTHER SPECIFIED SITE 12/02/2017 BA NAVAS Ot V76.12 OTH SCREEN MAMMO-MALIGN NEOPLASM OF YENNI 12/02/2017 DEREK CASEY, ADIS Ot 250.12 DIAB W KETOACIDOSIS, TYPE II OR UNSPEC T 12/02/2017 FELISA NAVAS DO Ot V76.12 OTH SCREEN MAMMO-MALIGN NEOPLASM OF YENNI 12/02/2017 BA NAVAS SUSTAINMENT LOGISTICS ANALYST Ot 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 12/02/2017 Ot 596.51 HYPERTONICITY OF BLADDER 12/02/2017 Ot 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 12/02/2017 Ot 788.30 UNSPECIFIED URINARY INCONTINENCE 12/02/2017 Ot V72.63 PRE- PROCEDURAL LABORATORY EXAMINATION 12/02/2017 Ot V74.8 SCREEN- BACTERIAL DIS NEC 12/02/2017 JEFF CASEY, ROSY Anderson Ot 596.51 HYPERTONICITY OF BLADDER 12/02/2017 JEFF CASEY, ROSY Anderson Ot 599.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 12/02/2017 ROSY AGUILAR MD Ot 788.30 UNSPECIFIED URINARY INCONTINENCE 12/02/2017 ROSY AGUILAR MD Ot V72.63 PRE-PROCEDURAL LABORATORY EXAMINATION 12/02/2017 JEFF CASEY, ROSY Anderson Ot V74.8 SCREEN-BACTERIAL DIS NEC 12/02/2017 BA NAVASP Ot N64.4 MASTODYNIA 12/06/2017 MARGO FLORES DO Ot E03.9 HYPOTHYROIDISM, UNSPECIFIED 12/06/2017 MARGO FLORES DO Ot E11.9 TYPE 2 DIABETES MELLITUS WITHOUT COMPLIC 12/06/2017 MARGO FLORES DO Ot E78.00 PURE HYPERCHOLESTEROLEMIA, UNSPECIFIED 12/06/2017 MARGO FLORES DO Ot F03.90 UNSPECIFIED DEMENTIA WITHOUT BEHAVIORAL 12/06/2017 MARGO FLORES DO Ot F32.9 MAJOR DEPRESSIVE DISORDER, SINGLE EPISOD 12/06/2017 MARK DIAZ MARGO Annmarie Ot G47.30 SLEEP APNEA, UNSPECIFIED 12/06/2017 MARK DIAZ MARGO Annmarie Ot I10 ESSENTIAL (PRIMARY) HYPERTENSION 12/06/2017 MARK DIAZ MARGO Annmarie Ot J45.909 UNSPECIFIED ASTHMA, UNCOMPLICATED 12/06/2017 MARK DIAZ MARGO Annmarie Ot K21.9 GASTRO-ESOPHAGEAL REFLUX DISEASE WITHOUT 12/06/2017 MARK DIAZ MARGO K Ot K58.9 IRRITABLE BOWEL SYNDROME WITHOUT DIARRHE 12/06/2017 MARK DIAZ MARGO K Ot R40.2142 COMA SCALE, EYES OPEN, SPONTANEOUS, EMR 12/06/2017 MARK DIAZ MARGO K Ot R40.2252 COMA SCALE, BEST VERBAL RESPONSE, ORIENT 12/06/2017 MARK DIAZ MARGO Annmarie Ot R40.2362 COMA SCALE, BEST MOTOR RESPONSE, OBEYS C 12/06/2017 MARK DIAZ MARGO Annmarie Ot S00.83XA CONTUSION OF OTHER PART OF HEAD, INITIAL 12/06/2017 MARK DIAZ MAGRO Annmarie Ot S06.9X9A UNSP INTRACRANIAL INJURY W LOC OF UNSP D 12/06/2017 MARK DIAZ MARGO Annmarie Ot S32.10XA UNSP FRACTURE OF SACRUM, INIT ENCNTR FOR 12/06/2017 MARK DIAZ MARGO Annmarie Ot Z77.22 CNTCT W AND EXPSR TO ENVIRON TOBACCO SMO 12/06/2017 MARK DIAZMARGO Ot Z79.84 [facility] (CURRENT) USE OF ORAL HYPOGLYC 12/06/2017 MARK MARGO K Ot Z87.81 PERSONAL HISTORY OF (HEALED) TRAUMATIC F 12/06/2017 MARK DIAZ MARGO Annmarie Ot Z87.820 PERSONAL HISTORY OF TRAUMATIC BRAIN INJU 12/06/2017 MARK DO MARGO K Ot Z88.5 ALLERGY STATUS TO NARCOTIC AGENT STATUS 12/06/2017 MARK DIAZMARGO Ot Z90.710 ACQUIRED ABSENCE OF BOTH CERVIX AND UTER 12/06/2017 MARK MARGO Ot Z90.89 ACQUIRED ABSENCE OF OTHER ORGANS Procedures There is no data. Results Test Result Range Complete blood count (CBC) with automated white blood cell (WBC) differential - 08/26/16 08:50 Blood leukocytes automated count (number/volume) 9.4 10*3/uL 4.3-11.0 Blood erythrocytes automated count (number/volume) 4.29 10*6/uL 4.35-5.85 Venous blood hemoglobin measurement (mass/volume) 12.9 g/dL 11.5-16.0 Blood hematocrit (volume fraction) 39 % 35-52 Automated erythrocyte mean corpuscular volume 90 [foz_us] 80-99 Automated erythrocyte mean corpuscular hemoglobin (mass per erythrocyte) 30 pg 25-34 Automated erythrocyte mean corpuscular hemoglobin concentration measurement ( mass/volume) 33 g/dL 32-36 Automated erythrocyte distribution width ratio 13.6 % 10.0-14.5 Automated blood platelet count (count/volume) 244 10*3/uL 130-400 Automated blood platelet mean volume measurement 9.7 [foz_us] 7.4-10.4 Automated blood neutrophils/100 leukocytes 47 % 42-75 Automated blood lymphocytes/100 leukocytes 39 % 12-44 Blood monocytes/100 leukocytes 12 % 0-12 Automated blood eosinophils/100 leukocytes 3 % 0-10 Automated blood basophils/100 leukocytes 0 % 0-10 Blood neutrophils automated count (number/volume) 4.4 10*3 1.8-7.8 Blood lymphocytes automated count (number/volume) 3.6 10*3 1.0-4.0 Blood monocytes automated count (number/volume) 1.1 10*3 0.0-1.0 Automated eosinophil count 0.2 10*3/uL 0.0-0.3 Automated blood basophil count (count/volume) 0.0 10*3/uL 0.0-0.1 Comprehensive metabolic panel - 08/26/16 08:50 Serum or plasma sodium measurement (moles/volume) 138 mmol/L 135-145 Serum or plasma potassium measurement (moles/volume) 4.4 mmol/L 3.6-5.0 Serum or plasma chloride measurement (moles/volume) 102 mmol/L 98-107 Carbon dioxide 27 mmol/L 21-32 Serum or plasma anion gap determination (moles/volume) 9 mmol/L 5-14 Serum or plasma urea nitrogen measurement (mass/volume) 18 mg/dL 7-18 Serum or plasma creatinine measurement (mass/volume) 0.80 mg/dL 0.60-1.30 Serum or plasma urea nitrogen/creatinine mass ratio 23 NRG Serum or plasma creatinine measurement with calculation of estimated glomerular filtration rate > NRG Serum or plasma glucose measurement (mass/volume) 169 mg/dL 70-105 Serum or plasma calcium measurement (mass/volume) 9.8 mg/dL 8.5-10.1 Serum or plasma total bilirubin measurement (mass/volume) 0.2 mg/dL 0.1-1.0 Serum or plasma alkaline phosphatase measurement (enzymatic activity/volume) 85 U/L 40-136 Serum or plasma aspartate aminotransferase measurement (enzymatic activity/ volume) 15 U/L 5-34 Serum or plasma alanine aminotransferase measurement (enzymatic activity/volume ) 11 U/L 0-55 Serum or plasma protein measurement (mass/volume) 6.7 g/dL 6.4-8.2 Serum or plasma albumin measurement (mass/volume) 4.0 g/dL 3.2-4.5 Magnesium - 08/26/16 08:50 Magnesium 1.9 mg/dL 1.8-2.4 Valproic acid - 08/26/16 08:50 Valproic acid 79.1 ug/mL 50.0-100.0 Capillary blood glucose measurement by glucometer (mass/volume) - 08/26/16 08: 55 Capillary blood glucose measurement by glucometer (mass/volume) 171 mg/dL 70-110 Complete urinalysis with reflex to culture - 08/26/16 10:00 Urine color determination YELLOW NRG Urine clarity determination CLEAR NRG Urine pH measurement by test strip 7 5-9 Specific gravity of urine by test strip 1.015 1.016- 1.022 Urine protein assay by test strip, semi-quantitative 2+ NEGATIVE Urine glucose detection by automated test strip NEGATIVE NEGATIVE Erythrocytes detection in urine sediment by light microscopy NEGATIVE NEGATIVE Urine ketones detection by automated test strip 2+ NEGATIVE Urine nitrite detection by test strip NEGATIVE NEGATIVE Urine total bilirubin detection by test strip NEGATIVE NEGATIVE Urine urobilinogen measurement by automated test strip (mass/volume) NORMAL NORMAL Urine leukocyte esterase detection by dipstick 3+ NEGATIVE Automated urine sediment erythrocyte count by microscopy (number/high power field) NONE NRG Automated urine sediment leukocyte count by microscopy (number/high power field ) [HPF] NRG Bacteria detection in urine sediment by light microscopy TRACE NRG Squamous epithelial cells detection in urine sediment by light microscopy 10-25 NRG Crystals detection in urine sediment by light microscopy NONE NRG Casts detection in urine sediment by light microscopy NONE NRG Mucus detection in urine sediment by light microscopy NEGATIVE NRG Complete urinalysis with reflex to culture YES NRG Bacterial urine culture - 08/26/16 10:00 URINE CULTURE RESULTS <10,000/ML NRG Complete blood count (CBC) with automated white blood cell (WBC) differential - 02/24/17 12:05 Blood leukocytes automated count (number/volume) 9.4 10*3/uL 4.3-11.0 Blood erythrocytes automated count (number/volume) 4.62 10*6/uL 4.35-5.85 Venous blood hemoglobin measurement (mass/volume) 14.0 g/dL 11.5-16.0 Blood hematocrit (volume fraction) 43 % 35-52 Automated erythrocyte mean corpuscular volume 93 [foz_us] 80-99 Automated erythrocyte mean corpuscular hemoglobin (mass per erythrocyte) 30 pg 25-34 Automated erythrocyte mean corpuscular hemoglobin concentration measurement ( mass/volume) 33 g/dL 32-36 Automated erythrocyte distribution width ratio 13.2 % 10.0-14.5 Automated blood platelet count (count/volume) 264 10*3/uL 130-400 Automated blood platelet mean volume measurement 9.5 [foz_us] 7.4-10.4 Automated blood neutrophils/100 leukocytes 45 % 42-75 Automated blood lymphocytes/100 leukocytes 42 % 12-44 Blood monocytes/100 leukocytes 11 % 0-12 Automated blood eosinophils/100 leukocytes 2 % 0-10 Automated blood basophils/100 leukocytes 0 % 0-10 Blood neutrophils automated count (number/volume) 4.2 10*3 1.8-7.8 Blood lymphocytes automated count (number/volume) 4.0 10*3 1.0-4.0 Blood monocytes automated count (number/volume) 1.0 10*3 0.0-1.0 Automated eosinophil count 0.2 10*3/uL 0.0-0.3 Automated blood basophil count (count/volume) 0.0 10*3/uL 0.0-0.1 PT panel in platelet poor plasma by coagulation assay - 02/24/17 12:05 Prothrombin time (PT) in platelet poor plasma by coagulation assay 11.8 s 12.2-14.7 INR in platelet poor plasma or blood by coagulation assay 0.9 0.8-1.4 Whole blood basic metabolic panel - 02/24/17 12:05 Serum or plasma sodium measurement (moles/volume) 143 mmol/L 135-145 Serum or plasma potassium measurement (moles/volume) 3.8 mmol/L 3.6-5.0 Serum or plasma chloride measurement (moles/volume) 103 mmol/L 98-107 Carbon dioxide 28 mmol/L 21-32 Serum or plasma anion gap determination (moles/volume) 12 mmol/L 5-14 Serum or plasma urea nitrogen measurement (mass/volume) 14 mg/dL 7-18 Serum or plasma creatinine measurement (mass/volume) 0.71 mg/dL 0.60-1.30 Serum or plasma urea nitrogen/creatinine mass ratio 20 NRG Serum or plasma creatinine measurement with calculation of estimated glomerular filtration rate > NRG Serum or plasma glucose measurement (mass/volume) 54 mg/dL 70-105 Serum or plasma calcium measurement (mass/volume) 9.5 mg/dL 8.5-10.1 Complete urinalysis with reflex to culture - 02/24/17 12:31 Urine color determination YELLOW NRG Urine clarity determination CLEAR NRG Urine pH measurement by test strip 6 5-9 Specific gravity of urine by test strip 1.025 1.016- 1.022 Urine protein assay by test strip, semi-quantitative 2+ NEGATIVE Urine glucose detection by automated test strip NEGATIVE NEGATIVE Erythrocytes detection in urine sediment by light microscopy NEGATIVE NEGATIVE Urine ketones detection by automated test strip 1+ NEGATIVE Urine nitrite detection by test strip NEGATIVE NEGATIVE Urine total bilirubin detection by test strip NEGATIVE NEGATIVE Urine urobilinogen measurement by automated test strip (mass/volume) NORMAL NORMAL Urine leukocyte esterase detection by dipstick 3+ NEGATIVE Automated urine sediment erythrocyte count by microscopy (number/high power field) [HPF] NRG Automated urine sediment leukocyte count by microscopy (number/high power field ) [HPF] NRG Bacteria detection in urine sediment by light microscopy FEW NRG Squamous epithelial cells detection in urine sediment by light microscopy 5-10 NRG Crystals detection in urine sediment by light microscopy NONE NRG Casts detection in urine sediment by light microscopy PRESENT NRG Mucus detection in urine sediment by light microscopy MODERATE NRG Complete urinalysis with reflex to culture YES NRG Hyaline casts detection in urine sediment by light microscopy 2-5 NRG Bacterial urine culture - 02/24/17 12:31 Bacterial urine culture [id number] NRG COLONY COUNT 10,000/ML - 100,000/ML NRG FTX;REPORTABLE SENSITIVITY REPORTED AT 1101, 6-17 NRG URINE CULTURE RESULTS PLUS NRG Bacterial susceptibility panel - 02/24/17 12:31 Gentamicin susceptibility test by minimum inhibitory concentration < = NRG Trimethoprim/sulfamethoxazole susceptibility test by minimum inhibitoryconcentration <= NRG Ampicillin susceptibility test by minimum inhibitory concentration < = NRG Tobramycin susceptibility test by minimum inhibitory concentration < = NRG Cefazolin susceptibility test by minimum inhibitory concentration < = NRG Ceftriaxone susceptibility test by minimum inhibitory concentration <= NRG Ampicillin/sulbactam susceptibility test by minimum inhibitory concentration <= NRG Piperacillin/tazobactam susceptibility test by minimum inhibitory concentration <= NRG Ciprofloxacin susceptibility test by minimum inhibitory concentration <= NRG Meropenem susceptibility test by minimum inhibitory concentration < = NRG Nitrofurantoin susceptibility test by minimum inhibitory concentration 128 NRG Aztreonam susceptibility test by minimum inhibitory concentration < = NRG Bacterial susceptibility panel - 02/24/17 12:31 Gentamicin susceptibility test by minimum inhibitory concentration S NRG Vancomycin susceptibility test by minimum inhibitory concentration 2 NRG Levofloxacin susceptibility test by minimum inhibitory concentration 1 NRG Tetracycline susceptibility test by minimum inhibitory concentration >= NRG Ampicillin susceptibility test by minimum inhibitory concentration < = NRG Nitrofurantoin susceptibility test by minimum inhibitory concentration <= NRG Linezolid susceptibility test by minimum inhibitory concentration 2 NRG Capillary blood glucose measurement by glucometer (mass/volume) - 02/24/17 13: 19 Capillary blood glucose measurement by glucometer (mass/volume) 553 mg/dL 70-110 Capillary blood glucose measurement by glucometer (mass/volume) - 02/24/17 13: 23 Capillary blood glucose measurement by glucometer (mass/volume) 79 mg/dL 70-110 Complete blood count (CBC) with automated white blood cell (WBC) differential - 07/29/17 21:40 Blood leukocytes automated count (number/volume) 8.0 10*3/uL 4.3-11.0 Blood erythrocytes automated count (number/volume) 4.15 10*6/uL 4.35-5.85 Venous blood hemoglobin measurement (mass/volume) 12.8 g/dL 11.5-16.0 Blood hematocrit (volume fraction) 37 % 35-52 Automated erythrocyte mean corpuscular volume 90 [foz_us] 80-99 Automated erythrocyte mean corpuscular hemoglobin (mass per erythrocyte) 31 pg 25-34 Automated erythrocyte mean corpuscular hemoglobin concentration measurement ( mass/volume) 34 g/dL 32-36 Automated erythrocyte distribution width ratio 13.0 % 10.0-14.5 Automated blood platelet count (count/volume) 242 10*3/uL 130-400 Automated blood platelet mean volume measurement 10.0 [foz_us] 7.4-10.4 Automated blood neutrophils/100 leukocytes 68 % 42-75 Automated blood lymphocytes/100 leukocytes 21 % 12-44 Blood monocytes/100 leukocytes 11 % 0-12 Automated blood eosinophils/100 leukocytes 0 % 0-10 Automated blood basophils/100 leukocytes 0 % 0-10 Blood neutrophils automated count (number/volume) 5.4 10*3 1.8-7.8 Blood lymphocytes automated count (number/volume) 1.7 10*3 1.0-4.0 Blood monocytes automated count (number/volume) 0.8 10*3 0.0-1.0 Automated eosinophil count 0.0 10*3/uL 0.0-0.3 Automated blood basophil count (count/volume) 0.0 10*3/uL 0.0-0.1 Comprehensive metabolic panel - 07/29/17 21:40 Serum or plasma sodium measurement (moles/volume) 133 mmol/L 135-145 Serum or plasma potassium measurement (moles/volume) 3.9 mmol/L 3.6-5.0 Serum or plasma chloride measurement (moles/volume) 100 mmol/L 98-107 Carbon dioxide 22 mmol/L 21-32 Serum or plasma anion gap determination (moles/volume) 11 mmol/L 5-14 Serum or plasma urea nitrogen measurement (mass/volume) 13 mg/dL 7-18 Serum or plasma creatinine measurement (mass/volume) 0.64 mg/dL 0.60-1.30 Serum or plasma urea nitrogen/creatinine mass ratio 20 NRG Serum or plasma creatinine measurement with calculation of estimated glomerular filtration rate > NRG Serum or plasma glucose measurement (mass/volume) 64 mg/dL 70-105 Serum or plasma calcium measurement (mass/volume) 9.0 mg/dL 8.5-10.1 Serum or plasma total bilirubin measurement (mass/volume) 0.3 mg/dL 0.1-1.0 Serum or plasma alkaline phosphatase measurement (enzymatic activity/volume) 67 U/L 40-136 Serum or plasma aspartate aminotransferase measurement (enzymatic activity/ volume) 20 U/L 5-34 Serum or plasma alanine aminotransferase measurement (enzymatic activity/volume ) 18 U/L 0-55 Serum or plasma protein measurement (mass/volume) 6.1 g/dL 6.4-8.2 Serum or plasma albumin measurement (mass/volume) 3.5 g/dL 3.2-4.5 Complete urinalysis with reflex to culture - 07/29/17 23:00 Urine color determination YELLOW NRG Urine clarity determination CLEAR NRG Urine pH measurement by test strip 8 5-9 Specific gravity of urine by test strip 1.015 1.016- 1.022 Urine protein assay by test strip, semi-quantitative 1+ NEGATIVE Urine glucose detection by automated test strip NEGATIVE NEGATIVE Erythrocytes detection in urine sediment by light microscopy 1+ NEGATIVE Urine ketones detection by automated test strip 4+ NEGATIVE Urine nitrite detection by test strip NEGATIVE NEGATIVE Urine total bilirubin detection by test strip NEGATIVE NEGATIVE Urine urobilinogen measurement by automated test strip (mass/volume) NORMAL NORMAL Urine leukocyte esterase detection by dipstick 2+ NEGATIVE Automated urine sediment erythrocyte count by microscopy (number/high power field) [HPF] NRG Automated urine sediment leukocyte count by microscopy (number/high power field ) [HPF] NRG Bacteria detection in urine sediment by light microscopy FEW NRG Squamous epithelial cells detection in urine sediment by light microscopy 5-10 NRG Crystals detection in urine sediment by light microscopy NONE NRG Casts detection in urine sediment by light microscopy NONE NRG Mucus detection in urine sediment by light microscopy NEGATIVE NRG Complete urinalysis with reflex to culture YES NRG Bacterial urine culture - 07/29/17 23:00 Bacterial urine culture [id number] NRG COLONY COUNT 10,000/ML - 100,000/ML NRG FTX;REPORTABLE SENSITIVITY REPORTED AT 0735, 08-01-17 NRG Bacterial susceptibility panel - 07/29/17 23:00 Gentamicin susceptibility test by minimum inhibitory concentration < = NRG Trimethoprim/sulfamethoxazole susceptibility test by minimum inhibitoryconcentration <= NRG Ampicillin susceptibility test by minimum inhibitory concentration 4 NRG Tobramycin susceptibility test by minimum inhibitory concentration < = NRG Cefazolin susceptibility test by minimum inhibitory concentration < = NRG Ceftriaxone susceptibility test by minimum inhibitory concentration <= NRG Ampicillin/sulbactam susceptibility test by minimum inhibitory concentration <= NRG Piperacillin/tazobactam susceptibility test by minimum inhibitory concentration <= NRG Ciprofloxacin susceptibility test by minimum inhibitory concentration <= NRG Meropenem susceptibility test by minimum inhibitory concentration < = NRG Nitrofurantoin susceptibility test by minimum inhibitory concentration <= NRG Aztreonam susceptibility test by minimum inhibitory concentration < = NRG Extended spectrum beta lactamase (ESBL) producing bacteria susceptibility test by minimum inhibitory concentration - [facility] Bacterial susceptibility panel - 07/29/17 23:00 Gentamicin susceptibility test by minimum inhibitory concentration < = NRG Trimethoprim/sulfamethoxazole susceptibility test by minimum inhibitoryconcentration <= NRG Ampicillin susceptibility test by minimum inhibitory concentration < = NRG Tobramycin susceptibility test by minimum inhibitory concentration < = NRG Cefazolin susceptibility test by minimum inhibitory concentration < = NRG Ceftriaxone susceptibility test by minimum inhibitory concentration <= NRG Ampicillin/sulbactam susceptibility test by minimum inhibitory concentration <= NRG Piperacillin/tazobactam susceptibility test by minimum inhibitory concentration <= NRG Ciprofloxacin susceptibility test by minimum inhibitory concentration <= NRG Meropenem susceptibility test by minimum inhibitory concentration < = NRG Nitrofurantoin susceptibility test by minimum inhibitory concentration 128 NRG Aztreonam susceptibility test by minimum inhibitory concentration < = NRG Bacterial susceptibility panel - 07/29/17 23:00 Gentamicin susceptibility test by minimum inhibitory concentration S NRG Vancomycin susceptibility test by minimum inhibitory concentration 2 NRG Levofloxacin susceptibility test by minimum inhibitory concentration 0.5 NRG Tetracycline susceptibility test by minimum inhibitory concentration >= NRG Ampicillin susceptibility test by minimum inhibitory concentration < = NRG Nitrofurantoin susceptibility test by minimum inhibitory concentration <= NRG Linezolid susceptibility test by minimum inhibitory concentration 2 NRG Encounters ACCT No. Visit Date/Time Discharge Status Pt. Type Provider Facility Loc./Unit Complaint [id number] 11/30/2017 00:59:00 11/30/2017 02:53:00 DIS Emergency MARK MARGO DIAZ Annmarie [facility] ER FALL [id number] 07/29/2017 21:33:00 07/29/2017 23:47:00 DIS Emergency MARK MARGO DIAZ Annmarie [facility] ER CONSTIPATION [id number] 02/24/2017 12:05:00 02/24/2017 14:00:00 DIS Emergency MAUREEN KAYE APRN [facility] ER FALL,HEAD INJURY [id number] 08/26/2016 08:33:00 08/26/2016 10:50:00 DIS Emergency DEJUAN CASEY, RAGHU Lindsay [facility] ER FALL [id number] 06/29/2016 17:27:00 06/29/2016 19:00:00 DIS Emergency GIOVANA SHARMA MD [facility] ER FALL [id number] 07/21/2015 13:57:00 07/21/2015 23:59:59 CLS Outpatient BA NAVAS [facility] RAD LT BREAST PAIN [id number] 06/17/2015 06:00:00 06/18/2015 12:00:00 DIS Outpatient ROSY AGUILAR MD [facility] STRESS URINARY INCONTINENCE [id number] 06/12/2015 13:15:00 06/12/2015 23:59:59 CLS Outpatient ROSY AGUILAR MD [facility] PREOP STRESS URINARY INCONTINENCE [id number] 03/26/2015 15:21:00 03/26/2015 23:59:59 CLS Preadmit SHANE CASEY, RONEY Lindsay [facility] REHAB [id number] 10/30/2014 07:29:00 10/30/2014 23:59:59 CLS Outpatient BA NAVAS [facility] RAD WORSENING PRESSURE , HYDROCEPHALUS [id number] 07/18/2014 13:28:00 07/18/2014 23:59:59 CLS Outpatient FELISA NAVAS DO [facility] RAD SCREENING [id number] 04/04/2014 18:25:00 04/04/2014 23:59:59 CLS Outpatient ADIS REED MD [facility] LAB DM [id number] 06/25/2013 14:45:00 06/25/2013 23:59:59 CLS Outpatient BA NAVAS [facility] RAD SCREENING [id number] 11/18/2014 06:00:00 Document Registration [id number] 11/14/2014 09:00:00 Document Registration [id number] 10/09/2012 12:40:00 Document Registration [id number] 06/22/2012 14:28:00 Document Registration [id number] 06/20/2012 13:31:00 Document Registration [id number] 06/20/2012 11:01:00 Document Registration [id number] 03/24/2012 05:34:00 Document Registration [id number] 03/23/2012 10:27:00 Document Registration [id number] 03/14/2012 11:01:00 Document Registration [id number] 11/05/2011 10:08:00 Document Registration [id number] 05/26/2011 17:04:00 Document Registration [id number] 05/07/2011 10:01:00 Document Registration [id number] 05/06/2010 14:15:00 Document Registration [id number] 12/02/2009 16:33:00 Document Registration [id number] 05/23/2009 13:08:00 Document Registration [id number] 03/28/2009 10:30:00 Document Registration [id number] 03/25/2009 07:45:00 Document Registration [id number] 03/11/2009 07:05:00 Document Registration [id number] 03/06/2009 19:00:00 Document Registration
[2018-02-05] MEDS ORDERED: NS IV 1000 ML 1,000 ML IV ONE (02:11)
[2018-02-05 02:18] LABS: BASOPHILS % (AUTO) 0 % (0-10); EOSINOPHILS % (AUTO) 0 % (0-10); HEMATOCRIT 40 % (35-52); HEMOGLOBIN 13.7 G/DL (11.5-16.0); LYMPHOCYTES % (AUTO) 22 % (12-44); MEAN CORPUSCULAR HEMOGLOBIN 33 PG (25-34); MEAN CORPUSCULAR HGB CONC 35 G/DL (32-36); MEAN CORPUSCULAR VOLUME 94 FL (80-99); MONOCYTES % (AUTO) 11 % (0-12); NEUTROPHILS # (AUTO) 6.1 X 10^3 (1.8-7.8); NEUTROPHILS % (AUTO) 67 % (42-75); PLATELET COUNT 232 10^3/uL (130-400); RED BLOOD COUNT 4.21 10^6/uL (4.35-5.85); RED CELL DISTRIBUTION WIDTH 13.1 % (10.0-14.5); WHITE BLOOD COUNT 9.2 10^3/uL (4.3-11.0)
[2018-02-05 02:33] LABS: ALANINE AMINOTRANSFERASE 57 U/L (0-55); ALBUMIN 3.9 GM/DL (3.2-4.5); ALKALINE PHOSPHATASE 94 U/L (40-136); BILIRUBIN,TOTAL 0.6 MG/DL (0.1-1.0); BUN/CREATININE RATIO 24; CALCIUM 9.8 MG/DL (8.5-10.1); CARBON DIOXIDE 18 MMOL/L (21-32); CHLORIDE 104 MMOL/L (98-107); CREATININE SERUM 0.74 MG/DL (0.60-1.30); GFR ESTIMATED > 60; GLUCOSE 80 MG/DL (70-105); POTASSIUM 3.9 MMOL/L (3.6-5.0); SODIUM 140 MMOL/L (135-145); TOTAL PROTEIN 6.5 GM/DL (6.4-8.2)
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
[2018-02-05 03:05] LABS: BILIRUBIN,URINE NEGATIVE (NEGATIVE); CLARITY,URINE CLEAR; COLOR,URINE YELLOW; GLUCOSE, URINE (UA) NEGATIVE (NEGATIVE); KETONES,URINE 4+ (NEGATIVE); LEUKOCYTE ESTERASE ,URINE 1+ (NEGATIVE); NITRITE,URINE NEGATIVE (NEGATIVE); PH,URINE 6.5 (5-9); PROTEIN,URINE 1+ (NEGATIVE); UROBILINOGEN,URINE 1 MG/DL (NORMAL)
[2018-02-05 03:15] LABS: BACTERIA,URINE TRACE /HPF; SQUAMOUS EPITHELIAL CELL,UR RARE /HPF; WBC,URINE RARE /HPF
[2018-02-05 03:47] VITALS: BP 100/50
--- NOTE | 2018-02-05 07:23 | Diagnostic Imaging Report ---
INDICATION: Right hip pain. Fall. Correlation made with a CT of the pelvis from 11/30/2017. FINDINGS: There are prior operative changes related to previous open reduction and internal fixation of the right femur. Heterotopic ossification about the right hip present. These findings are unchanged from the previous CT exam. There is no new acute fracture. There is no evidence of dislocation. The pelvic ring appears intact. There are degenerative features within the lower lumbar spine. IMPRESSION: 1. Degenerative and prior postoperative changes of the right hip without evidence of an acute fracture or dislocation. Dictated by: Dictated on workstation # [id number]
--- NOTE | 2018-02-05 07:26 | Diagnostic Imaging Report ---
INDICATION: Right hip pain post fall. TECHNIQUE: Single supine view of the abdomen 2:48 AM CORRELATION STUDY: None FINDINGS: Surgical clips in the right upper quadrant as well as left lower quadrant are present. Few gas-filled loops of bowel are present in a nonspecific pattern. No definitive evidence for obstruction. Advanced degenerative change about the visualized lumbar spine. Additionally, there is advanced degenerative change about the right hip. IMPRESSION: 1. Nonobstructive appearing bowel gas pattern. No acute abnormality about the abdomen on single projection. Dictated by: Dictated on workstation # [id number]
== END 2018-02-05 03:46 | disposition home or self-care (01) ==
LOC: ER 02:01 → EDUNIT# 02:01 → ER 03:46
DX: E86.0 Dehydration (principal); M25.551 Pain in right hip; G89.29 Other chronic pain; E78.00 Pure hypercholesterolemia, unspecified; I10 Essential (primary) hypertension; F03.90 Unspecified dementia, unspecified severity, without behavioral disturbance, psychotic disturbance, mood disturbance, and anxiety; K21.9 Gastro-esophageal reflux disease without esophagitis; K59.09 Other constipation; E03.9 Hypothyroidism, unspecified; E11.9 Type 2 diabetes mellitus without complications; F32.9 Major depressive disorder, single episode, unspecified; Z88.6 Allergy status to analgesic agent; Z77.22 Contact with and (suspected) exposure to environmental tobacco smoke (acute) (chronic); Z90.89 Acquired absence of other organs; Z90.710 Acquired absence of both cervix and uterus; Z82.49 Family history of ischemic heart disease and other diseases of the circulatory system; Z79.84 Long term (current) use of oral hypoglycemic drugs
CPT/HCPCS: 36415; 72170; 74018; 80053; 81000; 85025; 86141; 96360

== ENCOUNTER → 2018-02-25 | Outpatient (CLI) | payer MEDICARE, OTHER ==
--- NOTE | 2018-02-26 08:57 | Diagnostic Imaging Report ---
INDICATION: Back pain after fall. Three views were obtained FINDINGS: There is multilevel degenerative disc disease. The is some lower lumbar hypertrophic degenerative facet disease. The vertebral body heights are well-maintained. There is no spondylolysis or spondylolisthesis. No acute fractures are identified. IMPRESSION: Moderate diffuse lumbar spondylosis without acute fracture or traumatic subluxation. Dictated by: Dictated on workstation # [id number]
--- NOTE | 2018-02-26 09:17 | Diagnostic Imaging Report ---
INDICATION: Fall with pain. Two views were obtained. FINDINGS: There is a markedly abnormal appearance of the right femur. This is presumably posttraumatic. There is some dystrophic calcification. No acute fracture or dislocation. Soft tissues are unremarkable. IMPRESSION: Posttraumatic appearance of the right femur with multiple areas of dystrophic calcification, however, no acute fracture or dislocation. Dictated by: Dictated on workstation # [id number]
== END ==
LOC: RAD 22:44
PROVIDERS: ATTEND Internal Medicine
DX: M47.816 Spondylosis without myelopathy or radiculopathy, lumbar region (principal); M25.851 Other specified joint disorders, right hip; W19.XXXA Unspecified fall, initial encounter
CPT/HCPCS: 72100; 73502

== ENCOUNTER 2018-03-22 18:21 | Observation (INO) | payer MEDICARE, OTHER ==
[~2018-03-22] VITALS: Ht 152.4 cm; Wt 56.8 kg
[~2018-03-22 18:21] MED LIST changes: -ALBI30PE; +ALBI30PE INJ; -DESM0.2T2; +DESM0.2T2 PO; -IMIP50TA4; +IMIP50TA4 PO
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
[2018-03-22 18:42] LABS: BASOPHILS % (AUTO) 0 % (0-10); EOSINOPHILS % (AUTO) 0 % (0-10); HEMATOCRIT 37 % (35-52); HEMOGLOBIN 12.8 G/DL (11.5-16.0); LYMPHOCYTES # (AUTO) 2.7 X 10^3 (1.0-4.0); LYMPHOCYTES % (AUTO) 32 % (12-44); MEAN CORPUSCULAR HEMOGLOBIN 32 PG (25-34); MEAN CORPUSCULAR HGB CONC 35 G/DL (32-36); MEAN CORPUSCULAR VOLUME 92 FL (80-99); MEAN PLATELET VOLUME 10.1 FL (7.4-10.4); MONOCYTES # (AUTO) 0.9 X 10^3 (0.0-1.0); MONOCYTES % (AUTO) 11 % (0-12); NEUTROPHILS # (AUTO) 4.6 X 10^3 (1.8-7.8); NEUTROPHILS % (AUTO) 56 % (42-75); PLATELET COUNT 205 10^3/uL (130-400); RED BLOOD COUNT 3.99 10^6/uL (4.35-5.85); RED CELL DISTRIBUTION WIDTH 12.4 % (10.0-14.5); WHITE BLOOD COUNT 8.2 10^3/uL (4.3-11.0)
[2018-03-22 18:55] LABS: ALANINE AMINOTRANSFERASE 23 U/L (0-55); ALBUMIN 3.6 GM/DL (3.2-4.5); ALKALINE PHOSPHATASE 75 U/L (40-136); BILIRUBIN,TOTAL 0.5 MG/DL (0.1-1.0); BUN/CREATININE RATIO 23; CALCIUM 9.3 MG/DL (8.5-10.1); CARBON DIOXIDE 22 MMOL/L (21-32); CHLORIDE 101 MMOL/L (98-107); CREATININE SERUM 0.79 MG/DL (0.60-1.30); GFR ESTIMATED > 60; GLUCOSE 91 MG/DL (70-105); POTASSIUM 3.9 MMOL/L (3.6-5.0); SODIUM 135 MMOL/L (135-145); TOTAL PROTEIN 6.1 GM/DL (6.4-8.2)
--- NOTE | 2018-03-22 19:22 | Diagnostic Imaging Report ---
PROCEDURE: CT head and CT cervical spine without contrast. TECHNIQUE: Multiple contiguous axial images were obtained through the brain and cervical spine without the use of intravenous contrast. Sagittal and coronal reformations through the cervical spine were then performed. INDICATION: Weakness and recent falls. COMPARISON: Comparison made with CT examination from November 30, 2017. FINDINGS: Global volume loss has not appreciably changed when compared to the prior examination. Ex-vacuo dilatation of the ventricles is also stable. There are chronic microvascular changes present within the periventricular white matter. There is no territorial loss of rogers-white differentiation demonstrated. There is no evidence of acute hemorrhage, mass effect, or shift. There is no abnormal extra-axial fluid collection. The posterior fossa demonstrates no acute process. The mastoid air cells appear clear. The visualized paranasal sinuses are clear. Orbital contents are unremarkable. No acute calvarial abnormality is demonstrated. Assessment of the cervical spine is mildly limited by motion artifact. Alignment appears unchanged from the previous examination. There is maintenance of normal alignment of the craniocervical junction and a normal relationship of the lateral masses of C1 and C2. There is no evidence of facet joint or disc space widening and the vertebral body heights appear maintained. No acute cervical spine fracture is evident. Multilevel degenerative disc disease and facet arthropathy are not appreciably changed from the prior exam. There is no evidence to suggest high-grade central canal stenosis. Lung apices are clear. The soft tissues of the neck demonstrate no acute process. IMPRESSION: 1. Volume loss and microvascular changes are stable from the previous examination. There are no CT findings to suggest an acute intracranial abnormality. 2. Multilevel cervical degenerative disc disease and facet arthropathy without evidence of acute cervical spine fracture or traumatic malalignment. Dictated by: Dictated on workstation # [id number]
--- NOTE | 2018-03-22 19:26 | Diagnostic Imaging Report ---
EXAMINATION: Portable chest. INDICATION: Weakness and recent falls. FINDINGS: Lungs demonstrate no focal pulmonary infiltrate or consolidation. There is no effusion. There is no pneumothorax. Heart size and mediastinal contours appear appropriate without evidence of failure. There is no acute osseous abnormality. There has been prior right proximal humeral open reduction and internal fixation. IMPRESSION: 1. No radiographic evidence of an acute cardiopulmonary process. 2. No acute fracture evident. Dictated by: Dictated on workstation # [id number]
[2018-03-22] MEDS ORDERED: NS IV 1000 ML 1,000 ML IV SCH (19:30)
[2018-03-22 20:45] VITALS: BP 119/66
[2018-03-22] MEDS: NS IV 1000 ML 1,000 ML IV SCH (21:09)
[2018-03-22 21:25] VITALS: BP 91/81
[2018-03-22] MEDS ORDERED: RT-ALBUTEROL SULF 2.5 MG/3 ML PRE-MIX VIAL INH PRN (21:45)
[2018-03-22 22:35] VITALS: BP 118/63
[2018-03-23] VITALS (9 sets, daily range): BP systolic 108–132; BP diastolic 61–80
[2018-03-23 05:54] LABS: BILIRUBIN,URINE NEGATIVE (NEGATIVE); CLARITY,URINE CLEAR; COLOR,URINE YELLOW; GLUCOSE, URINE (UA) NEGATIVE (NEGATIVE); KETONES,URINE 1+ (NEGATIVE); LEUKOCYTE ESTERASE ,URINE 1+ (NEGATIVE); NITRITE,URINE NEGATIVE (NEGATIVE); PH,URINE 9 (5-9); PROTEIN,URINE 1+ (NEGATIVE); UROBILINOGEN,URINE NORMAL (NORMAL)
[2018-03-23 05:55] LABS: BACTERIA,URINE NEGATIVE /HPF; RBC,URINE RARE /HPF; SQUAMOUS EPITHELIAL CELL,UR 0-2 /HPF; WBC,URINE RARE /HPF
[2018-03-23 06:10] LABS: BASOPHILS % (AUTO) 0 % (0-10); EOSINOPHILS % (AUTO) 1 % (0-10); HEMATOCRIT 34 % (35-52); LYMPHOCYTES # (AUTO) 3.5 X 10^3 (1.0-4.0); LYMPHOCYTES % (AUTO) 47 % (12-44); MEAN CORPUSCULAR HEMOGLOBIN 33 PG (25-34); MEAN CORPUSCULAR HGB CONC 36 G/DL (32-36); MEAN CORPUSCULAR VOLUME 92 FL (80-99); MEAN PLATELET VOLUME 10.6 FL (7.4-10.4); MONOCYTES # (AUTO) 0.9 X 10^3 (0.0-1.0); MONOCYTES % (AUTO) 12 % (0-12); NEUTROPHILS % (AUTO) 40 % (42-75); PLATELET COUNT 193 10^3/uL (130-400); RED BLOOD COUNT 3.68 10^6/uL (4.35-5.85); RED CELL DISTRIBUTION WIDTH 12.4 % (10.0-14.5); WHITE BLOOD COUNT 7.4 10^3/uL (4.3-11.0)
[2018-03-23 06:37] LABS: ALANINE AMINOTRANSFERASE 20 U/L (0-55); ALBUMIN 3.4 GM/DL (3.2-4.5); ALKALINE PHOSPHATASE 71 U/L (40-136); BILIRUBIN,TOTAL 0.5 MG/DL (0.1-1.0); BUN/CREATININE RATIO 21; CALCIUM 8.7 MG/DL (8.5-10.1); CARBON DIOXIDE 19 MMOL/L (21-32); CHLORIDE 104 MMOL/L (98-107); GFR ESTIMATED > 60; GLUCOSE 80 MG/DL (70-105); POTASSIUM 3.2 MMOL/L (3.6-5.0); SODIUM 135 MMOL/L (135-145); TOTAL PROTEIN 5.6 GM/DL (6.4-8.2)
[2018-03-23] MEDS: NS IV 1000 ML 1,000 ML IV SCH ×2 (07:37→17:11)
[2018-03-23] MEDS ORDERED: VENL75CA93 PO (08:42)
[2018-03-23] MEDS ORDERED: ACET-2267 PO (08:42)
[2018-03-23] MEDS ORDERED: LEVO125T6 PO (08:42)
[2018-03-23] MEDS ORDERED: ESTR1PAT90 TD (08:42)
[2018-03-23] MEDS ORDERED: RABE20TA27 PO (08:42)
[2018-03-23] MEDS ORDERED: CALC-6 PO (08:42)
[2018-03-23] MEDS ORDERED: ASPI-983 PO (08:42)
[2018-03-23] MEDS ORDERED: FURO40TA4 PO (08:42)
[2018-03-23] MEDS ORDERED: ASCO500T7 PO (08:42)
[2018-03-23] MEDS ORDERED: ERGO50006 PO (08:42)
[2018-03-23] MEDS ORDERED: TRAV5DRO OU (08:42)
[2018-03-23] MEDS ORDERED: POLY119P4 PO (08:42)
[2018-03-23] MEDS ORDERED: NYST15PO2 TOP (08:42)
[2018-03-23] MEDS ORDERED: MULT-166 PO (08:42)
[2018-03-23] MEDS ORDERED: POTA10TA14 PO (08:42)
[2018-03-23] MEDS ORDERED: QUET300T3 PO (08:42)
[2018-03-23] MEDS ORDERED: VENL150C98 PO (08:42)
[2018-03-23] MEDS ORDERED: GUAI-367 PO (08:42)
[2018-03-23] MEDS ORDERED: DIVA500T15 PO (08:42)
[2018-03-23] MEDS ORDERED: ATEN25TA PO (08:42)
[2018-03-23] MEDS ORDERED: LOPE2CAP PO (08:42)
[2018-03-23] MEDS ORDERED: CHLO-159 PO (08:42)
[2018-03-23] MEDS ORDERED: NON-FORMULARY MEDICATION 1 EA EA (Venlafaxine HCl (Venlafaxine HCl ER) 75 MG) PO SCH (11:30)
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
[2018-03-23] MEDS ORDERED: PATIENT MAY USE OWN MEDS, ALL MC SCH (12:15)
[2018-03-23] MEDS ORDERED: VENlafaxine XR 75 MG (EFFEXOR XR) CAP PO ONE (12:15)
[2018-03-23] MEDS: VENlafaxine XR 75 MG (EFFEXOR XR) CAP PO SCH (14:02)
--- NOTE | 2018-03-23 14:48 | ST Cognitive Linguistic Eval ---
Speech Evaluation-General Medical Diagnosis Hypotension Onset Date: Mar 22, 2018 Therapy Diagnosis Therapy Diagnosis: Severe Cognitive Impairment Precautions Precautions/Isolations: Fall Prevention, Standard Precautions Referral Referring Physician: Dr. Carie Bee Reason for Referral: Evaluation/Treatment Collin Cognitive Assessment- Version One Medical History Pertinent Medical History: DM, Dementia, GERD, HTN, TBI (1992) Current History The patient was recently admitted to [facility] with a diagnosis of hypotension. To note, the patient experienced a significant TBI in 1992. Reviewed History: Yes Speech PLF-Current Status Prior Level of Function The patient displayed a low cognitive level with known dementia prior to admission. Subjective The patient was seated upright in bed upon entrance. The patient greeted the clinician and was highly agreeable to participation in the cognitive assessment. Language Eval: Auditory Ident/Pics in Multiple Curtis: Severe (The patient was unable to name any black and white photographs provided.) Follows 1-Step Commands: Moderate (Multiple repetition with direct modeling was required for moderate accuracy. The patient frequently completed tasks erroneously.) Follows Complex Directions: Severe Follows General Conversations: Moderate Language Eval: Verbal Language Completes Spontaneous Greeting: Functional Imitates Simple Words/Phrases: Mild (Multiple repetitions were required for accuracy.) Word Finding: Moderate Requests Basic Needs: Moderate Expresses Complex Ideas: Severe Cognitive Patient Orientation The patient was oriented to day of week, city, and location. The patient was unable to state the month, date, or year. The patient consistently stated the month was August. Objective Cognitive Domain Attention: Severe Memory: Severe Problem Solving: Severe Executive Functions: Severe Visuospatial Skills: Severe Clock Drawing Severity Rating: Severe Objective Formal/Standardized Tests Collin Cognitive Assessment (MoCA) Results The patient displayed an inability to complete executive function or visuospatial tasks with maximum cueing. The patient stated she had glasses and they were present in the room, however, the clinician could not locate them. The patient was unable to name black and white photographs, identify a specific letter, complete serial seven subtraction, or recall any single words following a five minute delay. The patient displayed a score of +7/30 correlating to a severe cognitive impairment. Impression The patient displays a severe cognitive impairment in the areas of executive functioning, visuospatial tasks, attention, memory, and orientation. Due to the patient's reduced ability to follow commands (with maximum direction - including direct modeling), poor attention span, and impaired executive functioning (sequencing) the patient is most appropriate for a longterm facility. Speech-Plan Treatment Plan Speech Therapy Treatment Plan: Discontinue ST Evaluation, only. Frequency: Modified Program (IRF) (Evaluation, only.) Estimated Hrs Per Day: Other (Evaluation, only.) Rehab Potential: Poor Safety Risks/Education Teaching Recipient: Patient Teaching Methods: Discussion Response to Teaching: Unable to Comprehend Education Topics Provided: Results, Recommendations, Plan of Care Discharge Recommendations Prison (TCU/NH) Time Speech Therapy Time In: 14:20 Speech Therapy Time Out: 14:45 Total Billed Time: 25 Billed Treatment Time 1, SPSNDCOMP Speech GCodes Complexity Level Test(s)/Tool Used to Determine: FIM Functional Limitation-Current Current: ATTENCUR Functional Limitation-Goal Goal: ATTENGOAL Modifier: NITHYA Functional Limitation-D/C Discharge: ATTENDC Modifier: LARA TINAJERO Mar 23, 2018 14:48
[2018-03-23] MEDS ORDERED: IMIPRAMINE 25 MG (TOFRANIL) TAB PO SCH (15:30)
[2018-03-23] MEDS ORDERED: NON-FORMULARY MEDICATION 1 EA EA (Imipramine HCl 50 MG) PO SCH (15:30)
--- NOTE | 2018-03-23 15:36 | Physical Therapy Evaluation ---
PT Evaluation-General Medical Diagnosis Admission Date Mar 22, 2018 at 19:58 Medical Diagnosis: Hypotension Onset Date: Mar 22, 2018 Therapy Diagnosis Therapy Diagnosis: impaired mobility, endurance, balance Height/Weight Height (Feet): 5 Height (Inches): 0.00 Weight (Pounds): 124 Weight (Ounces): 6.0 Precautions Precautions/Isolations: Fall Prevention, Standard Precautions Weight Bear Status Right Lower Extremity: Right Weight Bearing/Tolerated Left Lower Extremity: Left Weight Bearing/Tolerated Referral Physician: Carie Bee MD Reason for Referral: Evaluation/Treatment Medical History Pertinent Medical History: DM, Dementia, GERD, HTN, TBI (1992) Additional Medical History Past Medical History Surgeries: Abdominal (PEG), Adenoidectomy, Bladder Surgery, Cardiac, Gallbladder, Hysterectomy, Neurological (ventriculostomy), Orthopedic, Tonsillectomy, Tracheostomy Currently Using CPAP: No Currently Using BIPAP: No Cardiac: High Cholesterol, Hypertension, Irregular Heartbeat Neurological: Dementia, Traumatic Brain Injury, Vertigo ICH- traumatic Reproductive: No Sexually Transmitted Disease: No HIV/AIDS: No Female Reproductive Disorders: Ovarian Cyst Gastrointestinal: Gastroesophageal Reflux, Chronic Constipation, Irritable Bowel Musculoskeletal: Arthritis, Chronic Back Pain, Fractures Endocrine: Hypothyroidsim, Diabetes, Non-Insulin dep Psychosocial: Anxiety, Depression History of Blood Disorders: Yes (ANEMIA) Current History Patient went to the ER with generalized weakness and fall Reviewed History: Yes Social History Patient is not a good historian, unknown living situation and premorbid mobility level Prior/Core FIM Prior Level of Function Functional [place] Measure 0=Not Assessed/NA 4=Minimal Assistance 1=Total Assistance 5=Supervision or Setup 2=Maximal Assistance 6=Modified [place] 3=Moderate Assistance 7=Complete [place] PT Evaluation-Current Subjective Patient in bed pre tx, agrees to PT, she indicated that she has pain in her right leg but unable to pinpoint location or intensity. Pt/Family Goals none stated Objective Patient Orientation: Person, Confused Attachments: IV ROM/Strength ROM Lower Extremities No observed impairments. Strength Lower Extremities NT due to patient not being able to follow directions. Neuromuscular (Tone, Coordination, Reflexes) NT Sensory Hearing: Functional Sensation Right Lower Extremit: Impaired Sensation Left Lower Extremity: Impaired Sensation Lower Extremities Patient has intact light touch sensation in BLE but she indicated that she has decreased sensation from the calf down. Transfers Functional [place] Measure 0=Not Assessed/NA 4=Minimal Assistance 1=Total Assistance 5=Supervision or Setup 2=Maximal Assistance 6=Modified [place] 3=Moderate Assistance 7=Complete [place] Transfers (B, C, W/C) (FIM): 4 Scootin Rollin Supine to/from Sit: 5 Sit to/from Stand: 4 bed t/f WC(FIM only if WC use): 4 Patient performs bed mobility with SBA. Min assist for sit to stand and transfers. Patient is retropulsive when standing. Gait Mode of Locomotion: Walk Anticipated Mode of Locomotion: Walk Gait (FIM): 1 Distance: 5' Gait Level of Assist: 4 Gait Assistive Device: FWW Comments/Gait Description Patient ambulated just a few feet forward and was very retropulsive and then ambulated backward a few feet to a recliner. Min assist to maintain balance. Balance Sitting Static: Normal Sitting Dynamic: Normal Standing Static: Poor Standing Dynamic: Poor Treatment seated BLE exercises x15 (AP, LAQ) Assessment/Needs Patient has impaired mobility, endurance, balance. She is a high fall risk. Patient placed in recliner post tx with nurse call, phone, tray, chair alarm on. Rehab Potential: Guarded PT Short Term Goals Short Term Goals Time Frame: Mar 30, 2018 Transfers (B,C,W/C) (FIM): 4 (CGA) Gait (FIM): 2 Gait Distance Comment: 50' Gait Level of Assist: 4 Gait Assistive Device: FWW PT Plan Problem List Problem List: Activity Tolerance, Functional Strength, Safety, Balance, Gait, Transfer, Bed Mobility Treatment/Plan Treatment Plan: Continue Plan of Care Treatment Plan: Bed Mobility, Education, Functional Activity Jie, Functional Strength, Gait, Safety, Therapeutic Exercise, Transfers Treatment Duration: Mar 30, 2018 Frequency: 6 times per week Estimated Hrs Per Day: .25 hour per day (15-30') Patient and/or Family Agrees t: Yes Safety Risks/Education Patient Education: Gait Training, Transfer Techniques, Correct Positioning, Safety Issues Teaching Recipient: Patient Teaching Methods: Demonstration, Discussion Response to Teaching: Reinforcement Needed Discharge Recommendations Plan Patient will perform bed mobilty and transfer training,b alance and endurance training, functional strengthening, stair training, gait training, and education , to imrpove functional mobilty and independence at home. Therapy D/C Recommendations: Home w/ Family Support, Correction (TCU/NH) Time/GCodes Time In: 1510 Time Out: 1525 Total Billed Treatment Time: 15 Total Billed Treatment 1 visit EVM 15' G Codes Necessary: Yes PT/OT Therapy GCodes Therapy Functional Limitation: Physical Therapy Test(s)/Tool used to determine: FIM, Level of Assistance Scale Functional Limitation-Current Charge Code: MOBCUR Modifier: CJ Functional Limitation-Goal Charge Code: MOBGOAL Modifier: GARETT GUERRERO PT Mar 23, 2018 15:36
--- NOTE | 2018-03-23 16:45 | Occupational Therapy Eval ---
OT Evaluation-General/PLF Medical Diagnosis Admission Date Mar 22, 2018 at 19:58 Medical Diagnosis: Hypotension Onset Date: Mar 22, 2018 Therapy Diagnosis Therapy Diagnosis: Weakness Height/Weight Height (Feet): 5 Height (Inches): 0.00 Weight (Pounds): 124 Weight (Ounces): 6.0 Precautions Precautions/Isolations: Fall Prevention, Standard Precautions Safety Interventions: Bed Exit Alarm, Reorient-PRN Weight Bear Status Weight Bearing Restriction: Weight Bearing/Tolerated Referral Physician: Carie Bee MD Referral Reason: Activity Tolerance, Self Care, Evaluation/Treatment, Strengthening/ROM Medical History Pertinent Medical History: DM, Dementia, GERD, HTN, TBI (1992) Additional Medical History Pt. sustained brain injury in 1992. Has had PEG tube, hysterectomy, bladder surgery, tracheostomy Current History Pt. lives with her spouse. Became increasingly ill and weak. Spouse unable to get her up. Reviewed History: Yes Social History Pt. is unable to recall any information. Spouse not present in room. ADL-Prior Level of Function ADL PLOF Comments Pt. is unable to recall any information. OT Current Status Subjective Pt. is very pleasant and agreeable to work with therapy. Appearance Pt. sitting in chair. Looking at menu but unsure on how to open it or read it. ADL-Treatment Functional [place] Measure 0=Not Assessed/NA 4=Minimal Assistance 1=Total Assistance 5=Supervision or Setup 2=Maximal Assistance 6=Modified [place] 3=Moderate Assistance 7=Complete IndependenceIRFPAI Quality Coding Scale 6 Independent with activity with or without an assistive device 5 Patient requires set up or clean up by helper. Patient completes activity by themselves 4 Supervision or touching assist (CGA). [place] provide cues , steadying assist 3 The helper provides less than half the effort to complete the activity 2 The helper provides more than half the effort to complete the activity 1 Dependent. The helper does all the effort to complete an activity 7 Patient refused to complete or attempt activity 9 The patient did not perform the activity before the current illness or injury 88 Not attempted due to Medical conditions or safety concerns Toileting (FIM): 1 Transfers (B, C, W/C) (FIM): 3 (Mod assist to stand out of chair. Pt. encouraged to take steps toward bathroom. Attempts to but unable to ambulate. Sits back in chair with max cues.) Other Treatments Pt. is asked if she is hungry. Pt. states yes. OT is able to get her to say what she would like after the menu is read to her. OT orders food for her. Ask pt. if she needs to go to the bathroom. Pt. states that she does. Attempt to ambulate her to toilet. Pt. unable to really take steps with this therapist. Noted that she had been incontinent of urine in chair. OT changes pad, gown, and assists with cleansing self. Pt. able to swipe under arms, but unable to wash juan manuel area. Pt. is able to doff socks,but unable to don them. Pt. is positioned again in chair with all needs met. Nurse aide notified that dinner has been ordered. Education OT Patient Education: Correct positioning, Modified ADL techniques, Progress toward Goal/Update tx plan, Purpose of tx/functional activities, Reviewed precautions, Rehab process, Transfer techniques Teaching Recipient: Patient Teaching Methods: Demonstration, Discussion Response to Teaching: Verbalize Understanding, Return Demonstration OT Short Term Goals Short Term Goals Time Frame: Mar 30, 2018 Eating(FIM): 5 Grooming(FIM): 4 Upper Body Dressing(FIM): 4 Lower Body Dressing(FIM): 4 Transfers (B,C,W/C) (FIM): 4 (CGA) Additional Short Term Goals: 1-Demonstrate ADL Tasks, 2-Verbalize Understanding , 3-ImproveStrength/Jie 1=Demonstrate adherence to instructed precautions during ADL tasks. 2=Patient will verbalize/demonstrate understanding of assistive devices/ modifications for ADL. 3=Patient will improve strength/tolerance for activity to enable patient to perform ADL's. OT Clay Press Operator Goals Clay Press Operator Goals Time Frame: Apr 13, 2018 Eating (FIM): 5 Grooming(FIM): 5 Bathing(FIM): 4 Upper Body Dressing(FIM): 5 Lower Body Dressing(FIM): 4 Transfers (B,C,W/C) (FIM): 5 Additional Goals: 1-Demonstrate ADL Tasks, 2-Verbalize Understanding, 3- ImproveStrength/Jie 1=Demonstrate adherence to instructed precautions during ADL tasks. 2=Patient will verbalize/demonstrate understanding of assistive devices/ modifications for ADL. 3=Patient will improve strength/tolerance for activity to enable patient to perform ADL's. OT Education/Plan Problem List/Assessment Assessment: Decreased Activ Tolerance, Decreased Safety Aware, Decreased UE Strength, Dependent Transfers, Impaired Bed Mobility, Impaired Cognition, Impaired Coordination, Impaired Funct Balance, Impaired I ADL's, Impaired Self- Care Skills, Restricted Funct UE ROM Discharge Recommendations Plan/Recommendations: Continue POC Therapy D/C Recommendations: 24 hr Supervision Treatment Plan/Plan of Care Treatment,Training & Education: Yes Patient would benefit from OT for education, treatment and training to promote independence in ADL's, mobility, safety and/or upper extremity function for ADL' s. Plan of Care: ADL Retraining, Caregiver Training, Functional Mobility, UE Funct Exercise/Act Treatment Duration: Apr 13, 2018 Frequency: 5 times per week Estimated Hrs Per Day: .25 hour per day Agreement: Yes Rehab Potential: Guarded Time/GCodes Start Time: 15:45 Stop Time: 16:05 Total Time Billed (hr/min): 20 Billed Treatment Time 1, EVH x 20minutes Selfcur-CM Selfgoal-CK PT/OT Therapy GCodes Therapy Functional Limitation: Physical Therapy Test(s)/Tool used to determine: FIM, Level of Assistance Scale Functional Limitation-Current Charge Code: MOBCUR Modifier: CJ Functional Limitation-Goal Charge Code: MOBGOAL Modifier: JAZZMINE FOFANA OT Mar 23, 2018 16:45
[2018-03-23] MEDS: IMIPRAMINE HCL 50 MG PO SCH ×2 (17:10→18:33)
[2018-03-23] MEDS ORDERED: QUETIAPINE FUMARATE 300 MG PO SCH (19:30)
[2018-03-23] MEDS ORDERED: DESMOPRESSIN ACETATE 0.2 MG PO SCH (19:30)
[2018-03-23] MEDS ORDERED: DIVALPROEX EXT RELEASE 500 MG (DEPAKOTE ER) TAB PO SCH (19:30)
[2018-03-23] MEDS ORDERED: QUETIAPINE 300 MG PO SCH (19:30)
[2018-03-24] MEDS: NS IV 1000 ML 1,000 ML IV SCH ×2 (03:25→13:52)
[2018-03-24 04:00] VITALS: BP 142/85
[2018-03-24] MEDS: VENLAFAXINE HCL 150 MG PO SCH ×2 (06:49→06:54)
[2018-03-24] MEDS: IMIPRAMINE HCL 50 MG PO SCH ×2 (06:50→14:53)
[2018-03-24] MEDS ORDERED: NON-FORMULARY MEDICATION 1 EA EA (Venlafaxine HCl (Venlafaxine HCl ER) 300 MG) PO SCH (07:30)
[2018-03-24] MEDS ORDERED: VENlafaxine XR 75 MG (EFFEXOR XR) CAP PO SCH (07:30)
[2018-03-24] MEDS ORDERED: LEVOTHYROXINE 125 MCG (LEVOTHROID) TABLET PO SCH (07:30)
[2018-03-24 08:00] VITALS: BP 119/74
--- NOTE | 2018-03-24 09:27 | Discharge Summary-Hospitalist ---
Diagnosis/Chief Complaint Date of Admission Mar 22, 2018 at 7:58 pm Date of Discharge Discharge Date: Mar 24, 2018 Admission Diagnosis Generalized weakness Discharge Diagnosis (1) Generalized weakness Assessment & Plan: PT/OT consulted IRU eval requested- declined Discussed with that NH placement may be necessary at discharge unable to facilitate NH placement at this time and would prefer to DC home today Will have hospice evaluate as likely a candidate given progression over the last year and poor palliative performance scale Discussed with as well and will contact [facility] for welfare check, appreciate assistance Palliative Care consulted, appreciate assistance (2) TBI (traumatic brain injury) Status: Chronic Assessment & Plan: Suffered severe TBI in 1992 Symptoms likely due to brain injury and dementia Discussed progression of disease Recommended assigning DPOA and Advance Directive Consult placed (3) Dementia Status: Chronic Assessment & Plan: Speech did cognitive eval 04/24 on MOCA (4) Non-insulin dependent type 2 diabetes mellitus Status: Chronic Assessment & Plan: reports last A1c was 5.2 Will hold home diabetic meds (5) Hypotension Status: Acute Assessment & Plan: Resolved with IVF Discharge Summary Discharge Physical Exam Allergies: Coded Allergies: morphine (Verified Allergy, Unknown, 08/01/08) Vitals & I&Os Vital Signs Date Time Temp Pulse Resp B/P (MAP) Pulse Ox O2 Delivery O2 Flow Rate FiO2 03/24/18 08:00 97.8 83 16 119/74 (89) 98 Room Air General Appearance: Alert, Cooperative Respiratory: Clear to Auscultation Cardiovascular: Regular Rate Abdominal: Normal Bowel Sounds, Soft Hospital Course Pt admitted for generalized weakness and overall debility. She was mildly hypotensive on arrival and was admitted to obs. I discussed with about options and my strong recommendation that she discharge to a termite treater care facility. he as unable to visit any facilities and elected to discharge to home today now that she was stabilized. I did discuss options including hospice and he seemed interested in this to assist with his ability to keep her home. I called and updated his PCP Dr Feng of this hospitalization and the considerations going forward with NH placement. he met with [facility] during admission and elected to enroll with them. She was discharged home in stable condition on hospice care. Labs (last 24 hrs) Patient resulted labs reviewed. Imaging: Reviewed Imaging Report Discussion & Recommendations Discharge Planning: >30 minutes discharge planning Discharge Home Medications: Active Scripts Active Reported Chlortabs (Chlorpheniramine Maleate) 4 Mg Tablet 4 Mg PO 0730,1530 Loperamide (Loperamide HCl) 2 Mg Capsule PO UD PRN Tylenol Extra Strength (Acetaminophen) 500 Mg Tablet 500-1,000 Mg PO Q6H PRN Mucinex Dm ER 600-30 mg Tablet (Guaifenesin/Dextromethorphan) 1 Each Tab.er.12h 1 Tab PO 0730,1530 Aspirin EC (Aspirin) 81 Mg Tablet.dr 81 Mg PO 1530 Clearlax (Polyethylene Glycol 3350) 119 Gm Powder 17 Gm PO 0730 Rabeprazole Sodium 20 Mg Tablet.dr 20 Mg PO 0730 Klor-Con M10 (Potassium Chloride) 10 Meq Tab.er.prt 10 Meq PO 1130 Atenolol 25 Mg Tablet 25 Mg PO 193 Furosemide 40 Mg Tablet 40 Mg PO 07 Nyamyc (Nystatin) 15 Gm Powder TOP TID PRN Levothyroxine Sodium 125 Mcg Tablet 125 Mcg PO 0730 Estradiol Patch Weekly 0.05mg/hr (Estradiol) 1 Each Patch.tdsw 0.05 Mg TD MOTH APPLIES AT 1200 Venlafaxine HCl ER (Venlafaxine HCl) 75 Mg Cap.er.24h 75 Mg PO 1130 Vitamin D2 (Ergocalciferol (Vitamin D2)) 50,000 Unit Capsule 50,000 Units PO SA TAKES AT 1130 Travatan Z (Travoprost) 5 Ml Drops 1 Drop OU HS Seroquel Xr (Quetiapine Fumarate) 300 Mg Tab.er.24h 300 Mg PO 1930 Venlafaxine HCl ER (Venlafaxine HCl) 150 Mg Cap.er.24h 300 Mg PO 0730 TAKES 2 (150MG) CAPSULES Divalproex Sodium ER (Divalproex Sodium) 500 Mg Tab.er.24h 2,000 Mg PO 1930 TAKES 4 (500MG) TABLETS Ascorbic Acid 500 Mg Tablet 500 Mg PO 1130,0,0 Multivitamins with Minerals (Multivitamin with Minerals) 1 Each Tablet 1 Tab PO 1530 Calcium 600 + Vit D 200 Tablet (Calcium Carbonate/Vitamin D3) 1 Each Tablet 1 Tab PO 1130,1530,0 Tanzeum (Albiglutide) 30 Mg/0.5 Ml Pen.injctr 30 Mg INJ NAILS Imipramine HCl 50 Mg Tablet 50 Mg PO 0730,1529,1929 Desmopressin Acetate 0.2 Mg Tablet 0.6 Mg PO 1929 Instructions to patient/family Please see electronic discharge instructions given to patient. Clinical Quality Measures DVT/VTE Risk/Contraindication: Risk Factor Score Per Nursin RFS Level Per Nursing on Admit: 4+=Very High Copy Copies To 1: FELISA FENG DO Problem Qualifiers (1) TBI (traumatic brain injury): Encounter type: sequela Loss of consciousness presence/duration: with LOC of unspecified duration Qualified Codes: S06.9X9S - Unspecified intracranial injury with loss of consciousness of unspecified duration, sequela (2) Dementia: Dementia type: unspecified type Dementia behavioral disturbance: without behavioral disturbance Qualified Codes: F03.90 - Unspecified dementia without behavioral disturbance (3) Hypotension: Hypotension type: unspecified hypotension type Qualified Codes: I95.9 - Hypotension, unspecified ALBER DURAN MD Mar 24, 2018 9:27 am
--- NOTE | 2018-03-24 09:38 | Discharge Inst-Simple/Standard ---
Discharge Inst-Standard Patient Instructions/Follow Up Plan of Care/Instructions/FU: Please continue to take your medications as written. Please follow up with your PCP in 1 week. Activity as Tolerated: Yes Discharge Diet: No Restrictions Return to The [facility] For: If you feel you are getting worse. ALBER DURAN MD Mar 24, 2018 09:38
--- NOTE | 2018-03-24 10:12 | Occupational Ther Daily Note ---
OT Current Status-Daily Note Subjective Pt alert, lying in bed. Pt agrees to therapy. in room with pt. Mental Status/Objective Patient Orientation: Person Functional [place] Measure 0=Not Assessed/NA 4=Minimal Assistance 1=Total Assistance 5=Supervision or Setup 2=Maximal Assistance 6=Modified [place] 3=Moderate Assistance 7=Complete [place] Attachments: IV ADL-Treatment Nrsg in room, pt asked to use toilet. Pt incontinent of bladder. Pt requires verbal cues and slight physical cues to use cleanse clothes to wash self after incontinence. Dependent for juan manuel care and LE's. Min A supine to sitting EOB. Mod A sitting EOB to supine. Retropulsive in standing, verbal cues to place head on HUNTER's shldr to initiate forward movement. AE resource catalog given to pt's . Pt has worries about transferring pt and getting pt into bathroom. After therapy, pt lying in bed with call light/phone in reach. All needs met in room. Toileting (FIM): 1 Transfers (B, C, W/C) (FIM): 3 Toilet/Commode Transfer (FIM): 3 OT Short Term Goals Short Term Goals Time Frame: Mar 30, 2018 Eating(FIM): 5 Grooming(FIM): 4 Upper Body Dressing(FIM): 4 Lower Body Dressing(FIM): 4 Transfers (B,C,W/C) (FIM): 4 (CGA) Additional Short Term Goals: 1-Demonstrate ADL Tasks, 2-Verbalize Understanding , 3-ImproveStrength/Jie 1=Demonstrate adherence to instructed precautions during ADL tasks. 2=Patient will verbalize/demonstrate understanding of assistive devices/ modifications for ADL. 3=Patient will improve strength/tolerance for activity to enable patient to perform ADL's. OT Multiple Launch Rocket System Crewmember Goals Multiple Launch Rocket System Crewmember Goals Time Frame: Apr 13, 2018 Eating (FIM): 5 Grooming(FIM): 5 Bathing(FIM): 4 Upper Body Dressing(FIM): 5 Lower Body Dressing(FIM): 4 Transfers (B,C,W/C) (FIM): 5 Additional Goals: 1-Demonstrate ADL Tasks, 2-Verbalize Understanding, 3- ImproveStrength/Jie 1=Demonstrate adherence to instructed precautions during ADL tasks. 2=Patient will verbalize/demonstrate understanding of assistive devices/ modifications for ADL. 3=Patient will improve strength/tolerance for activity to enable patient to perform ADL's. OT Education/Plan Discharge Recommendations Plan/Recommendations: Continue POC Treatment Plan/Plan of Care Patient would benefit from OT for education, treatment and training to promote independence in ADL's, mobility, safety and/or upper extremity function for ADL' s. Plan of Care: ADL Retraining, Caregiver Training, Functional Mobility, UE Funct Exercise/Act Treatment Duration: Apr 13, 2018 Frequency: 5 times per week Estimated Hrs Per Day: .25 hour per day Agreement: Yes Rehab Potential: Guarded Time/GCodes Start Time: 09:30 Stop Time: 10:30 Total Time Billed (hr/min): 30 Billed Treatment Time 1 visit-ADL 2 (30 min) PT/OT Therapy GCodes Therapy Functional Limitation: Physical Therapy Test(s)/Tool used to determine: FIM, Level of Assistance Scale Functional Limitation-Current Charge Code: MOBCUR Modifier: CJ Functional Limitation-Goal Charge Code: MOBGOAL Modifier: RAMSEY FUNK Mar 24, 2018 10:12
[2018-03-24] MEDS: VENlafaxine XR 75 MG (EFFEXOR XR) CAP PO SCH (11:24)
[2018-03-24 12:00] VITALS: BP 116/77
--- NOTE | 2018-03-24 14:40 | Physical Therapy Daily Note ---
PT Daily Note-Current Subjective Pt. very pleasant states she is not sure if she is discharging today or not. States she doesnt use FWWat home. Agreeable to exercise and short walk and up in chair Pain Numeric Pain Scale: 0-No Pain Mental Status Patient Orientation: Confused Transfers Functional [place] Measure 0=Not Assessed/NA 4=Minimal Assistance 1=Total Assistance 5=Supervision or Setup 2=Maximal Assistance 6=Modified [place] 3=Moderate Assistance 7=Complete IndependenceIRFPAI Quality Coding Scale 6 Independent with activity with or without an assistive device 5 Patient requires set up or clean up by helper. Patient completes activity by themselves 4 Supervision or touching assist (CGA). [place] provide cues , steadying assist 3 The helper provides less than half the effort to complete the activity 2 The helper provides more than half the effort to complete the activity 1 Dependent. The helper does all the effort to complete an activity 7 Patient refused to complete or attempt activity 9 The patient did not perform the activity before the current illness or injury 88 Not attempted due to Medical conditions or safety concerns sup to sit to stand all CGA to SBA Weight Bearing Right Lower Extremity: Right Weight Bearing/Tolerated Left Lower Extremity: Left Weight Bearing/Tolerated Gait Training Gait Assistive Device: FWW 30ft FWW min assist Exercises Supine Ex: Ankle pumps, Rolling, Heel Slides, Short Arc Quads, Straight leg raise, Hip abd/add Supine Reps: 12 Seated Therapy Exercises: Ankle pumps, Sit to stand, Long arc quads Seated Reps: 12 Assessment Current Status: Good Progress PT Short Term Goals Short Term Goals Time Frame: Mar 30, 2018 Transfers (B,C,W/C) (FIM): 4 (CGA) Gait (FIM): 2 Gait Distance Comment: 50' Gait Level of Assist: 4 Gait Assistive Device: FWW PT Plan Treatment/Plan Treatment Plan: Continue Plan of Care Treatment Plan: Bed Mobility, Education, Functional Activity Jie, Functional Strength, Gait, Safety, Therapeutic Exercise, Transfers Treatment Duration: Mar 30, 2018 Frequency: 6 times per week Estimated Hrs Per Day: .25 hour per day (15-30') Patient and/or Family Agrees t: Yes Safety Risks/Education Patient Education: Gait Training, Transfer Techniques Response to Teaching: Reinforcement Needed Time/GCodes Time In: 1415 Time Out: 1440 Total Billed Treatment Time: 25 Total Billed Treatment 1,EX13m,FA12m G Codes Necessary: No PT/OT Therapy GCodes Therapy Functional Limitation: Physical Therapy Test(s)/Tool used to determine: FIM, Level of Assistance Scale Functional Limitation-Current Charge Code: CRISTIANA Modifier: ARTEM Functional Limitation-Goal Charge Code: ADAL Modifier: SHANKAR NUR AGRONOMY TECHNICIAN Mar 24, 2018 14:40
--- NOTE | 2018-03-27 13:18 | Physical Therapy Progress Note ---
Therapy Progress Note G codes for date of discharge 03/24/18: MOB GOAL CI; MOB DC CK (min assist with transfers and gait). RAMSEY GALLO PT Mar 27, 2018 13:18
== END 2018-03-24 10:27 | disposition hospice, home (50) ==
LOC: EDUNIT# 18:21 → ER 18:22 → 4TH 19:58 → UNDOADMOB 19:58 → 4TH 20:30 → UNDODISOB 03-24 16:10
PROVIDERS: ADMIT Internal Medicine; ATTEND Internal Medicine
DX: R53.1 Weakness (principal); Z87.820 Personal history of traumatic brain injury; F03.90 Unspecified dementia, unspecified severity, without behavioral disturbance, psychotic disturbance, mood disturbance, and anxiety; E11.9 Type 2 diabetes mellitus without complications; I95.9 Hypotension, unspecified; Z88.5 Allergy status to narcotic agent; S06.9X9S Unspecified intracranial injury with loss of consciousness of unspecified duration, sequela; I10 Essential (primary) hypertension; E78.00 Pure hypercholesterolemia, unspecified; E03.9 Hypothyroidism, unspecified; F32.9 Major depressive disorder, single episode, unspecified; F41.9 Anxiety disorder, unspecified; Z79.899 Other long term (current) drug therapy; R29.6 Repeated falls
CPT/HCPCS: 36415; 70450; 71045; 72125; 80053; 81000; 82962; 85025; 93005; 94760; 96360; G0378

== ENCOUNTER 2018-04-09 22:00 | Observation (INO) | payer MEDICARE, OTHER ==
[~2018-04-09] VITALS: Ht 152.4 cm; Wt 56.8 kg
[~2018-04-09 22:00] MED LIST changes: +ACET-2267 PO; +ASCO500T7 PO; +ASPI-983 PO; +CALC-6 PO; +CHLO-159 PO; +DIVA500T15 PO; +ERGO50006 PO; +ESTR1PAT90 TD; +GUAI-367 PO; +LOPE2CAP PO; +MULT-166 PO; +NYST15PO2 TOP; +POLY119P4 PO; +POTA10TA14 PO; +QUET300T3 PO; +RABE20TA27 PO; +VENL150C98 PO; +VENL75CA93 PO
[2018-04-09] MEDS ORDERED: NS IV 500 ML 500 ML IV ONE (22:13)
[2018-04-09 22:19] LABS: BASOPHILS % (AUTO) 0 % (0-10); EOSINOPHILS % (AUTO) 0 % (0-10); HEMATOCRIT 36 % (35-52); HEMOGLOBIN 12.3 G/DL (11.5-16.0); LYMPHOCYTES # (AUTO) 1.9 X 10^3 (1.0-4.0); LYMPHOCYTES % (AUTO) 36 % (12-44); MEAN CORPUSCULAR HEMOGLOBIN 32 PG (25-34); MEAN CORPUSCULAR HGB CONC 34 G/DL (32-36); MEAN CORPUSCULAR VOLUME 95 FL (80-99); MONOCYTES # (AUTO) 0.5 X 10^3 (0.0-1.0); MONOCYTES % (AUTO) 9 % (0-12); NEUTROPHILS # (AUTO) 2.8 X 10^3 (1.8-7.8); NEUTROPHILS % (AUTO) 54 % (42-75); PLATELET COUNT 141 10^3/uL (130-400); RED BLOOD COUNT 3.81 10^6/uL (4.35-5.85); RED CELL DISTRIBUTION WIDTH 13.7 % (10.0-14.5); WHITE BLOOD COUNT 5.2 10^3/uL (4.3-11.0)
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
[2018-04-09 22:34] LABS: ALANINE AMINOTRANSFERASE 26 U/L (0-55); ALBUMIN 3.4 GM/DL (3.2-4.5); ALKALINE PHOSPHATASE 82 U/L (40-136); BILIRUBIN,TOTAL 0.6 MG/DL (0.1-1.0); BUN/CREATININE RATIO 19; CALCIUM 9.1 MG/DL (8.5-10.1); CARBON DIOXIDE 23 MMOL/L (21-32); CHLORIDE 106 MMOL/L (98-107); CREATININE SERUM 0.62 MG/DL (0.60-1.30); GFR ESTIMATED > 60; GLUCOSE 64 MG/DL (70-105); SODIUM 139 MMOL/L (135-145); TOTAL PROTEIN 5.8 GM/DL (6.4-8.2)
[2018-04-09 22:55] LABS: CLARITY,URINE CLEAR; COLOR,URINE AMBER; GLUCOSE, URINE (UA) NEGATIVE (NEGATIVE); KETONES,URINE 4+ (NEGATIVE); LEUKOCYTE ESTERASE ,URINE 1+ (NEGATIVE); NITRITE,URINE NEGATIVE (NEGATIVE); PH,URINE 7 (5-9); PROTEIN,URINE 1+ (NEGATIVE); UROBILINOGEN,URINE 4 MG/DL (NORMAL)
[2018-04-09 23:07] LABS: BACTERIA,URINE NEGATIVE /HPF; BILIRUBIN,URINE 1+ (NEGATIVE); SQUAMOUS EPITHELIAL CELL,UR 0-2 /HPF
[2018-04-10 04:09] VITALS: BP 127/75
[2018-04-10 08:00] VITALS: BP 111/52
[2018-04-10] MEDS ORDERED: OXYC20OR15 SL (11:21)
[2018-04-10] MEDS ORDERED: HYOS-19 SL (11:21)
[2018-04-10] MEDS ORDERED: LORA1TAB PO (11:21)
[2018-04-10 12:00] VITALS: BP 125/62
--- OUTSIDE RECORDS SUMMARY | 2018-04-10 13:27 | XMS REPORT | Continuity of Care Document ---
Author Author [facility] Organization [facility] Address Unknown Phone Unavailable Allergies Active Description Code Type Severity Reaction Onset Reported/Identified Relationship to Patient Clinical Status Yes morphine [id number] Drug Allergy Unknown N/A 08/01/2008 Medications There [...] 625.9 08/19/2014 Ot 789.09 08/19/2014 BA NAVAS TACK WELDER Ot V76.12 08/19/2014 DEREK CASEY, ADIS Ot 250.12 08/19/2014 FELISA NAVAS DO Ot V76.12 11/04/2014 BA NAVAS TACK WELDER Ot 331.4 11/04/2014 Ot V76.12 11/04/2014 Ot [...] 625.9 11/04/2014 Ot 789.09 11/04/2014 BA NAVAS TACK WELDER Ot V76.12 11/04/2014 DEREK CASEY, ADIS Ot 250.12 11/04/2014 FELISA NAVAS DO Ot V76.12 11/04/2014 BA NAVAS TACK WELDER Ot 331.4 11/04/2014 BA NAVASP Ot 331.4 11/04/2014 BA NAVAS TACK WELDER Ot 331.4 11/12/2014 BA NAVAS TACK WELDER Ot 331.4 11/18/2014 Ot V58.69 11/18/2014 Ot [...] 625.9 11/18/2014 Ot 789.09 11/18/2014 BA NAVAS TACK WELDER Ot V76.12 11/18/2014 ADIS REED MD Ot [...] 625.9 11/18/2014 Ot 789.09 11/18/2014 BA NAVAS TACK WELDER Ot V76.12 11/18/2014 ADIS REED MD Ot 250.12 11/18/2014 FELISA NAVAS DO Ot V76.12 11/18/2014 BA NAVAS TACK WELDER Ot 331.4 11/18/2014 Ot 596.51 11/18/2014 Ot 599.82 11/18/2014 Ot 788.30 11/18/2014 Ot V72.63 11/18/2014 Ot V74.8 11/18/2014 Ot 250.00 DIAB YORDY WO COMPL, TYPE II OR UNSPEC TY 11/18/2014 Ot 401.9 HYPERTENSION NOS 11/18/2014 Ot 596.51 HYPERTONICITY OF BLADDER 11/18/2014 Ot 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 11/18/2014 Ot 788.30 UNSPECIFIED URINARY INCONTINENCE 11/21/2014 BA NAVAS TACK WELDER Ot 331.4 12/20/2014 BA NAVAS TACK WELDER Ot 331.4 01/01/2015 Ot 596.51 01/01/2015 Ot 599.82 01/01/2015 Ot 788.30 01/01/2015 Ot V72.63 01/01/2015 Ot V74.8 03/22/2015 BA NAVAS TACK WELDER Ot 331.4 04/18/2015 Ot V58.69 04/18/2015 Ot [...] 625.9 04/18/2015 Ot 789.09 04/18/2015 BA NAVAS TACK WELDER Ot V76.12 04/18/2015 ADIS REED MD Ot 250.12 04/18/2015 FELISA NAVAS DO Ot V76.12 04/18/2015 BA NAVAS TACK WELDER Ot 331.4 04/18/2015 Ot 596.51 04/18/2015 Ot [...] 625.9 07/21/2015 Ot 789.09 07/21/2015 BA NAVAS TACK WELDER Ot V76.12 07/21/2015 DEREK CASEY, ADIS Ot 250.12 07/21/2015 FELISA NAVAS DO Ot V76.12 07/21/2015 BA NAVAS TACK WELDER Ot 331.4 07/21/2015 Ot 596.51 07/21/2015 Ot [...] 625.9 08/26/2015 Ot 789.09 08/26/2015 BA NAVAS TACK WELDER Ot V76.12 08/26/2015 DEREK CASEY, ADIS Ot 250.12 08/26/2015 FELISA NAVAS DO Ot V76.12 08/26/2015 BA NAVAS TACK WELDER Ot 331.4 08/26/2015 Ot 596.51 08/26/2015 Ot 599.82 08/26/2015 Ot 788.30 08/26/2015 Ot V72.63 08/26/2015 Ot V74.8 08/26/2015 JEFF CASEY, ROSY Anderson Ot 596.51 08/26/2015 JEFF CASEY, ROSY Anderson Ot 599.82 08/26/2015 JEFF CASEY, ROSY Anderson Ot 788.30 08/26/2015 JEFF CASEY, ROSY Anderson Ot V72.63 08/26/2015 JEFF CASEY, ROSY Anderson Ot V74.8 08/26/2015 BA NAVAS TACK WELDER Ot N64.4 08/28/2015 BA NAVAS TACK WELDER Ot N64.4 06/29/2016 Ot V76.12 OTH SCREEN [...] PAIN, OTHER SPECIFIED SITE 06/29/2016 BA NAVAS TACK WELDER Ot V76.12 OTH SCREEN MAMMO-MALIGN NEOPLASM OF [...] V74.8 SCREEN-BACTERIAL DIS NEC 06/29/2016 BA NAVAS TACK WELDER Ot N64.4 MASTODYNIA 06/29/2016 GIOVANA SHARMA MD [...] STRIKE 06/29/2016 GIOVANA SHARMA MD, Ot Y92.[address] [facility] [address] IN [facility] ([facility] 06/29/2016 GIOVANA SHARMA MD, Ot Y99.8 OTHER EXTERNAL CAUSE STATUS 06/29/2016 GIOVANA SHARMA MD, Ot Z79.899 OTHER [facility] (CURRENT) DRUG THERAPY 06/29/2016 GIOVANA SHARMA MD, [...] STRIKE 06/30/2016 GIOVANA SHARMA MD, Ot Y92.[address] [facility] [address] IN [facility] ([facility] 06/30/2016 GIOVANA SHARMA MD, Ot Y99.8 OTHER EXTERNAL CAUSE STATUS 06/30/2016 GIOVANA SHARMA MD, Ot Z79.899 OTHER EDUCATION DEPARTMENT REGISTRAR (CURRENT) DRUG THERAPY 06/30/2016 GIOVANA SHARMA MD, [...] ZAIDI MD Ot Y92.[address] IN [facility] 08/26/2016 RAGHU ZAIDI MD Ot Y93.9 ACTIVITY, UNSPECIFIED 08/26/2016 RAGHU ZAIDI MD Ot Y99.8 OTHER EXTERNAL CAUSE STATUS 08/26/2016 RAGHU ZAIDI MD Ot Z79.84 FDC (CURRENT) USE OF ORAL HYPOGLYC 08/26/2016 RAGHU ZAIDI MD Ot Z79.899 OTHER FDC (CURRENT) DRUG THERAPY 08/26/2016 RAGHU ZAIDI MD [...] MAMMO-MALIGN NEOPLASM OF YENNI 08/26/2016 BA NAVAS TACK WELDER Ot 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 08/26/2016 Ot 596.51 [...] V74.8 SCREEN-BACTERIAL DIS NEC 08/26/2016 BA NAVAS TACK WELDER Ot N64.4 MASTODYNIA 08/27/2016 RAGHU ZAIDI MD [...] ZAIDI MD Ot Y92.[address] IN [facility] 08/27/2016 RAGHU ZAIDI MD Ot Y93.9 ACTIVITY, UNSPECIFIED 08/27/2016 RAGHU ZAIDI MD Ot Y99.8 OTHER EXTERNAL CAUSE STATUS 08/27/2016 RAGHU ZAIDI MD Ot Z79.84 FDC (CURRENT) USE OF ORAL HYPOGLYC 08/27/2016 RAGHU ZAIDI MD Ot Z79.899 OTHER EDUCATION DEPARTMENT REGISTRAR (CURRENT) DRUG THERAPY 08/27/2016 RAGHU ZAIDI MD [...] OTH SCREEN MAMMO-MALIGN NEOPLASM OF YENNI 02/24/2017 BA NAVAS TACK WELDER Ot 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 02/24/2017 Ot 596.51 [...] ENCO 02/24/2017 MAUREEN KAYE APRN Ot Z79.84 FDC (CURRENT) USE OF ORAL HYPOGLYC 02/24/2017 MAUREEN KAYE APRN Ot Z79.899 OTHER FDC (CURRENT) DRUG THERAPY 02/24/2017 MAUREEN KAYE APRN Ot Z87.820 PERSONAL HISTORY OF TRAUMATIC BRAIN INJU 02/27/2017 MAUREEN KAYE APRN Ot E11.9 TYPE 2 DIABETES MELLITUS WITHOUT COMPLIC 02/27/2017 MAUREEN KAYE APRN Ot N39.0 URINARY TRACT INFECTION, SITE NOT SPECIF 02/27/2017 MAUREEN KAYE APRN Ot S09.90XA UNSPECIFIED INJURY OF HEAD, INITIAL ENCO 02/27/2017 MAUREEN KAYE APRN Ot Z79.84 EDUCATION DEPARTMENT REGISTRAR (CURRENT) USE OF ORAL HYPOGLYC 02/27/2017 MAUREEN KAYE APRN Ot Z79.899 OTHER EDUCATION DEPARTMENT REGISTRAR (CURRENT) DRUG THERAPY 02/27/2017 MAUREEN KAYE APRN Ot Z87.820 PERSONAL HISTORY OF TRAUMATIC BRAIN INJU 02/28/2017 MAUREEN KAYE APRN Ot E11.9 TYPE 2 DIABETES MELLITUS WITHOUT COMPLIC 02/28/2017 MAUREEN KAYE APRN Ot N39.0 URINARY TRACT INFECTION, SITE NOT SPECIF 02/28/2017 MAUREEN KAYE APRN Ot S09.90XA UNSPECIFIED INJURY OF HEAD, INITIAL ENCO 02/28/2017 MAUREEN KAYE APRN Ot Z79.84 FDC (CURRENT) USE OF ORAL HYPOGLYC 02/28/2017 MAUREEN KAYE APRN Ot Z79.899 OTHER EDUCATION DEPARTMENT REGISTRAR (CURRENT) DRUG THERAPY 02/28/2017 MAUREEN KAYE APRN Ot Z87.820 PERSONAL HISTORY OF TRAUMATIC BRAIN INJU 03/03/2017 MAUREEN KAYE APRN Ot E11.9 TYPE 2 DIABETES MELLITUS WITHOUT COMPLIC 03/03/2017 MAUREEN KAYE APRN Ot N39.0 URINARY TRACT INFECTION, SITE NOT SPECIF 03/03/2017 MAUREEN KAYE APRN Ot S09.90XA UNSPECIFIED INJURY OF HEAD, INITIAL ENCO 03/03/2017 MAUREEN KAYE APRN Ot Z79.84 EDUCATION DEPARTMENT REGISTRAR (CURRENT) USE OF ORAL HYPOGLYC 03/03/2017 MAUREEN KAYE APRN Ot Z79.899 OTHER EDUCATION DEPARTMENT REGISTRAR (CURRENT) DRUG THERAPY 03/03/2017 MAUREEN KAYE APRN [...] Ot K21.9 GASTRO-ESOPHAGEAL REFLUX DISEASE WITHOUT 07/29/2017 MRAK DO, MARGO K Ot K59.00 CONSTIPATION, UNSPECIFIED 07/29/2017 MARK DO MARGO K Ot N39.0 URINARY TRACT INFECTION, SITE NOT SPECIF 07/29/2017 MARK JARED DIAZA K Ot Z79.84 FDC (CURRENT) USE OF ORAL HYPOGLYC 07/29/2017 MARK [...] SMO 11/30/2017 MARGO FLORES DO Ot Z79.84 EDUCATION DEPARTMENT REGISTRAR (CURRENT) USE OF ORAL HYPOGLYC 11/30/2017 MARGO [...] SMO 12/02/2017 MARGO FLORES DO Ot Z79.84 FDC (CURRENT) USE OF ORAL HYPOGLYC 12/02/2017 MARGO [...] 12/02/2017 MARK DIAZ MARGO Annmarie Ot Z79.84 FDC (CURRENT) USE OF ORAL HYPOGLYC 12/02/2017 MARK [...] MAMMO-MALIGN NEOPLASM OF YENNI 12/02/2017 BA NAVAS TACK WELDER Ot 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 12/02/2017 Ot 596.51 [...] F32.9 MAJOR DEPRESSIVE DISORDER, SINGLE EPISOD 12/06/2017 MARGO FLORES DO Ot G47.30 SLEEP APNEA, UNSPECIFIED 12/06/2017 MARK DIAZ MARGO Annmarie Ot I10 ESSENTIAL (PRIMARY) HYPERTENSION 12/06/2017 MARK DIAZ MARGO Annmarie Ot J45.909 UNSPECIFIED ASTHMA, UNCOMPLICATED 12/06/2017 MARK DIAZ MARGO Annmarie Ot K21.9 GASTRO-ESOPHAGEAL REFLUX DISEASE WITHOUT 12/06/2017 MARK DIAZ MARGO K Ot K58.9 IRRITABLE BOWEL SYNDROME WITHOUT DIARRHE 12/06/2017 MARK DIAZ MARGO Annmarie Ot R40.2142 COMA SCALE, EYES OPEN, SPONTANEOUS, EMR 12/06/2017 MARK DIAZ MARGO K Ot R40.2252 COMA SCALE, BEST VERBAL RESPONSE, ORIENT 12/06/2017 MARK DIAZ MARGO Annmarie Ot R40.2362 COMA SCALE, BEST MOTOR RESPONSE, OBEYS C 12/06/2017 MARK DIAZ MARGO Annmarie Ot S00.83XA CONTUSION OF OTHER PART OF HEAD, INITIAL 12/06/2017 MARK DIAZ MARGO Annmarie Ot S06.9X9A UNSP INTRACRANIAL INJURY W LOC OF UNSP D 12/06/2017 MARK DIAZ MARGO Annmarie Ot S32.10XA UNSP FRACTURE OF SACRUM, INIT ENCNTR FOR 12/06/2017 MARK DIAZ MARGO Annmarie Ot Z77.22 CNTCT W AND EXPSR TO ENVIRON TOBACCO SMO 12/06/2017 MARK DIAZ MARGO K Ot Z79.84 FDC (CURRENT) USE OF ORAL HYPOGLYC 12/06/2017 MARK MARGO K Ot Z87.81 PERSONAL HISTORY OF (HEALED) TRAUMATIC F 12/06/2017 MARK DIAZ MARGO Annmarie Ot Z87.820 PERSONAL HISTORY OF TRAUMATIC BRAIN INJU 12/06/2017 MARK DIAZ MARGO K Ot Z88.5 ALLERGY STATUS TO NARCOTIC AGENT STATUS 12/06/2017 MARK MARGO K Ot Z90.710 ACQUIRED ABSENCE OF BOTH CERVIX AND UTER 12/06/2017 MARK MARGO Ot Z90.89 ACQUIRED ABSENCE OF OTHER ORGANS 02/05/2018 GIOVANA SHARMA MD Ot E03.9 HYPOTHYROIDISM, UNSPECIFIED 02/05/2018 GIOVANA SHARMA MD Ot E11.9 TYPE 2 DIABETES MELLITUS WITHOUT COMPLIC 02/05/2018 GIOVANA SHARMA MD Ot E78.00 PURE HYPERCHOLESTEROLEMIA, UNSPECIFIED 02/05/2018 GIOVANA SHARMA MD Ot E86.0 DEHYDRATION 02/05/2018 GIOVANA SHARMA MD, Ot F03.90 UNSPECIFIED DEMENTIA WITHOUT BEHAVIORAL 02/05/2018 GIOVANA SHARMA MD Ot F32.9 MAJOR DEPRESSIVE DISORDER, SINGLE EPISOD 02/05/2018 GIOVANA SHARMA MD Ot G89.29 OTHER CHRONIC PAIN 02/05/2018 GIOVANA SHARMA MD Ot I10 ESSENTIAL (PRIMARY) HYPERTENSION 02/05/2018 GIOVANA SHARMA MD, Ot K21.9 GASTRO-ESOPHAGEAL REFLUX DISEASE WITHOUT 02/05/2018 GIOVANA SHARMA MD, Ot K59.09 OTHER CONSTIPATION 02/05/2018 GIOVANA SHARMA MD Ot M25.551 PAIN IN RIGHT HIP 02/05/2018 GIOVANA SHARMA MD, Ot Z77.22 CNTCT W AND EXPSR TO ENVIRON TOBACCO SMO 02/05/2018 GIOVANA SHARMA MD Ot Z79.84 EDUCATION DEPARTMENT REGISTRAR (CURRENT) USE OF ORAL HYPOGLYC 02/05/2018 GIOVANA SHARMA MD Ot Z82.49 FAMILY HX OF ISCHEM HEART DIS AND OTH DI 02/05/2018 GIOVANA SHARMA MD, Ot Z88.6 ALLERGY STATUS TO ANALGESIC AGENT STATUS 02/05/2018 GIOVANA SHARMA MD Ot Z90.710 ACQUIRED ABSENCE OF BOTH CERVIX AND UTER 02/05/2018 GIOVANA SHARMA MD Ot Z90.89 ACQUIRED ABSENCE OF OTHER ORGANS 02/07/2018 GIOVANA SHARMA MD Ot E03.9 HYPOTHYROIDISM, UNSPECIFIED 02/07/2018 GIOVANA SHARMA MD Ot E11.9 TYPE 2 DIABETES MELLITUS WITHOUT COMPLIC 02/07/2018 GIOVANA SHARMA MD, Ot E78.00 PURE HYPERCHOLESTEROLEMIA, UNSPECIFIED 02/07/2018 GIOVAAN SHARMA MD Ot E86.0 DEHYDRATION 02/07/2018 GIOVANA SHARMA MD Ot F03.90 UNSPECIFIED DEMENTIA WITHOUT BEHAVIORAL 02/07/2018 GIOVANA SHARMA MD Ot F32.9 MAJOR DEPRESSIVE DISORDER, SINGLE EPISOD 02/07/2018 GIOVANA SHARMA MD Ot G89.29 OTHER CHRONIC PAIN 02/07/2018 GIOVANA SHARMA MD Ot I10 ESSENTIAL (PRIMARY) HYPERTENSION 02/07/2018 GIOVANA SHARMA MD, Ot K21.9 GASTRO-ESOPHAGEAL REFLUX DISEASE WITHOUT 02/07/2018 GIOVANA SHARMA MD, Ot K59.09 OTHER CONSTIPATION 02/07/2018 GIOVANA SHARMA MD Ot M25.551 PAIN IN RIGHT HIP 02/07/2018 GIOVANA SHARMA MD Ot Z77.22 CNTCT W AND EXPSR TO ENVIRON TOBACCO SMO 02/07/2018 GIOVANA SHARMA MD, Ot Z79.84 EDUCATION DEPARTMENT REGISTRAR (CURRENT) USE OF ORAL HYPOGLYC 02/07/2018 GIOVANA SHARMA MD, Ot Z82.49 FAMILY HX OF ISCHEM HEART DIS AND OTH DI 02/07/2018 GIOVANA SHARMA MD, Ot Z88.6 ALLERGY STATUS TO ANALGESIC AGENT STATUS 02/07/2018 GIOVANA SHARMA MD, Ot Z90.710 ACQUIRED ABSENCE OF BOTH CERVIX AND UTER 02/07/2018 GIOVANA SHARMA MD Ot Z90.89 ACQUIRED ABSENCE OF OTHER ORGANS 02/28/2018 FELISA NAVAS DO, Ot M25.851 OTHER SPECIFIED JOINT DISORDERS, RIGHT H 02/28/2018 FELISA NAVAS DO Ot M47.816 SPONDYLOSIS W/O MYELOPATHY OR RADICULOPA 02/28/2018 FELISA NAVAS DO Ot W19.XXXA UNSPECIFIED FALL, INITIAL ENCOUNTER 03/17/2018 FELISA NAVAS DO, Ot M25.851 OTHER SPECIFIED JOINT DISORDERS, RIGHT H 03/17/2018 FELISA NAVAS DO, Ot M47.816 SPONDYLOSIS W/O MYELOPATHY OR RADICULOPA 03/17/2018 FELISA NAVAS DO Ot W19.XXXA UNSPECIFIED FALL, INITIAL ENCOUNTER 03/24/2018 SELVIN BADILLO MD Ot E03.9 HYPOTHYROIDISM, UNSPECIFIED 03/24/2018 SELVIN BADILLO MD Ot E11.9 TYPE 2 DIABETES MELLITUS WITHOUT COMPLIC 03/24/2018 SELVIN BADILLO MD Ot E78.00 PURE HYPERCHOLESTEROLEMIA, UNSPECIFIED 03/24/2018 SELVIN BADILLO MD Ot F03.90 UNSPECIFIED DEMENTIA WITHOUT BEHAVIORAL 03/24/2018 SELVIN BADILLO MD, Ot F32.9 MAJOR DEPRESSIVE DISORDER, SINGLE EPISOD 03/24/2018 SELVIN BADILLO MD, Ot F41.9 ANXIETY DISORDER, UNSPECIFIED 03/24/2018 SELVIN BADILLO MD, Ot I10 ESSENTIAL (PRIMARY) HYPERTENSION 03/24/2018 SELIVN BADILLO MD, Ot I95.9 HYPOTENSION, UNSPECIFIED 03/24/2018 SELVIN BADILLO MD, Ot R29.6 REPEATED FALLS 03/24/2018 SELVIN BADILLO MD, Ot R53.1 WEAKNESS 03/24/2018 SELVIN BADILLO MD, Ot S06.9X9S UNSP INTRACRANIAL INJURY W LOC OF UNSP D 03/24/2018 SELVIN BADILLO MD, Ot Z79.899 OTHER EDUCATION DEPARTMENT REGISTRAR (CURRENT) DRUG THERAPY 03/24/2018 SELVIN BADILLO MD, Ot Z87.820 PERSONAL HISTORY OF TRAUMATIC BRAIN INJU 03/24/2018 SELVIN BADILLO MD, Ot Z88.5 ALLERGY STATUS TO NARCOTIC AGENT STATUS Procedures There is no data. Results Test [...] culture - 02/24/17 12:31 Bacterial urine culture [id number] NRG COLONY COUNT 10,000/ML - 100,000/ML NRG FTX;REPORTABLE SENSITIVITY REPORTED AT 1101, 6-4-17 NR URINE CULTURE RESULTS PLUS [facility] Bacterial susceptibility panel - 02/24/17 12:31 Gentamicin [...] test by minimum inhibitory concentration < = NR Bacterial susceptibility panel - 02/24/17 12:31 Gentamicin [...] culture - 07/29/17 23:00 Bacterial urine culture [id number] NRG COLONY COUNT 10,000/ML - 100,000/ML NRG FTX;REPORTABLE SENSITIVITY REPORTED AT 0735, 08-01-17 [facility] Bacterial susceptibility panel - 07/29/17 23:00 Gentamicin [...] susceptibility test by minimum inhibitory concentration - [facility] Bacterial susceptibility panel - 07/29/17 23:00 Gentamicin [...] test by minimum inhibitory concentration 2 NRG Complete blood count (CBC) with automated white blood cell (WBC) differential - 02/05/18 02:09 Blood leukocytes automated count (number/volume) 9.2 10*3/uL 4.3-11.0 Blood erythrocytes automated count (number/volume) 4.21 10*6/uL 4.35-5.85 Venous blood hemoglobin measurement (mass/volume) 13.7 g/dL 11.5-16.0 Blood hematocrit (volume fraction) 40 % 35-52 Automated erythrocyte mean corpuscular volume 94 [foz_us] 80-99 Automated erythrocyte mean corpuscular hemoglobin (mass per erythrocyte) 33 pg 25-34 Automated erythrocyte mean corpuscular hemoglobin concentration measurement ( mass/volume) 35 g/dL 32-36 Automated erythrocyte distribution width ratio 13.1 % 10.0-14.5 Automated blood platelet count (count/volume) 232 10*3/uL 130-400 Automated blood platelet mean volume measurement 10.0 [foz_us] 7.4-10.4 Automated blood neutrophils/100 leukocytes 67 % 42-75 Automated blood lymphocytes/100 leukocytes 22 % 12-44 Blood monocytes/100 leukocytes 11 % 0-12 Automated blood eosinophils/100 leukocytes 0 % 0-10 Automated blood basophils/100 leukocytes 0 % 0-10 Blood neutrophils automated count (number/volume) 6.1 10*3 1.8-7.8 Blood lymphocytes automated count (number/volume) 2.0 10*3 1.0-4.0 Blood monocytes automated count (number/volume) 1.0 10*3 0.0-1.0 Automated eosinophil count 0.0 10*3/uL 0.0-0.3 Automated blood basophil count (count/volume) 0.0 10*3/uL 0.0-0.1 Comprehensive metabolic panel - 02/05/18 02:09 Serum or plasma sodium measurement (moles/volume) 140 mmol/L 135-145 Serum or plasma potassium measurement (moles/volume) 3.9 mmol/L 3.6-5.0 Serum or plasma chloride measurement (moles/volume) 104 mmol/L 98-107 Carbon dioxide 18 mmol/L 21-32 Serum or plasma anion gap determination (moles/volume) 18 mmol/L 5-14 Serum or plasma urea nitrogen measurement (mass/volume) 18 mg/dL 7-18 Serum or plasma creatinine measurement (mass/volume) 0.74 mg/dL 0.60-1.30 Serum or plasma urea nitrogen/creatinine mass ratio 24 NRG Serum or plasma creatinine measurement with calculation of estimated glomerular filtration rate > NRG Serum or plasma glucose measurement (mass/volume) 80 mg/dL 70-105 Serum or plasma calcium measurement (mass/volume) 9.8 mg/dL 8.5-10.1 Serum or plasma total bilirubin measurement (mass/volume) 0.6 mg/dL 0.1-1.0 Serum or plasma alkaline phosphatase measurement (enzymatic activity/volume) 94 U/L 40-136 Serum or plasma aspartate aminotransferase measurement (enzymatic activity/ volume) 68 U/L 5-34 Serum or plasma alanine aminotransferase measurement (enzymatic activity/volume ) 57 U/L 0-55 Serum or plasma protein measurement (mass/volume) 6.5 g/dL 6.4-8.2 Serum or plasma albumin measurement (mass/volume) 3.9 g/dL 3.2-4.5 Serum or plasma C reactive protein measurement (mass/volume) - 02/05/18 02:09 Serum or plasma C reactive protein measurement (mass/volume) 0.11 mg /dL 0.00-0.50 Complete urinalysis with reflex to culture - 02/05/18 02:55 Urine color determination YELLOW NRG Urine clarity determination CLEAR NRG Urine pH measurement by test strip 6.5 5-9 Specific gravity of urine by test [...] urobilinogen measurement by automated test strip (mass/volume) 1 mg/dL NORMAL Urine leukocyte esterase detection by dipstick 1+ NEGATIVE Automated urine sediment erythrocyte count by microscopy (number/high power field) NONE NRG Automated urine sediment leukocyte count by microscopy (number/high power field ) RARE NRG Bacteria detection in urine sediment by light microscopy TRACE NRG Squamous epithelial cells detection in urine sediment by light microscopy RARE NRG Crystals detection in urine sediment by light microscopy NONE NRG Casts detection in urine sediment by light microscopy NONE NRG Mucus detection in urine sediment by light microscopy SMALL NRG Complete urinalysis with reflex to culture NO NRG Complete blood count (CBC) with automated white blood cell (WBC) differential - 03/22/18 18:26 Blood leukocytes automated count (number/volume) 8.2 10*3/uL 4.3-11.0 Blood erythrocytes automated count (number/volume) 3.99 10*6/uL 4.35-5.85 Venous blood hemoglobin measurement (mass/volume) 12.8 g/dL 11.5-16.0 Blood hematocrit (volume fraction) 37 % 35-52 Automated erythrocyte mean corpuscular volume 92 [foz_us] 80-99 Automated erythrocyte mean corpuscular hemoglobin (mass per erythrocyte) 32 pg 25-34 Automated erythrocyte mean corpuscular hemoglobin concentration measurement ( mass/volume) 35 g/dL 32-36 Automated erythrocyte distribution width ratio 12.4 % 10.0-14.5 Automated blood platelet count (count/volume) 205 10*3/uL 130-400 Automated blood platelet mean volume measurement 10.1 [foz_us] 7.4-10.4 Automated blood neutrophils/100 leukocytes 56 % 42-75 Automated blood lymphocytes/100 leukocytes 32 % 12-44 Blood monocytes/100 leukocytes 11 % 0-12 Automated blood eosinophils/100 leukocytes 0 % 0-10 Automated blood basophils/100 leukocytes 0 % 0-10 Blood neutrophils automated count (number/volume) 4.6 10*3 1.8-7.8 Blood lymphocytes automated count (number/volume) 2.7 10*3 1.0-4.0 Blood monocytes automated count (number/volume) 0.9 10*3 0.0-1.0 Automated eosinophil count 0.0 10*3/uL 0.0-0.3 Automated blood basophil count (count/volume) 0.0 10*3/uL 0.0-0.1 Comprehensive metabolic panel - 03/22/18 18:26 Serum or plasma sodium measurement (moles/volume) 135 mmol/L 135-145 Serum or plasma potassium measurement (moles/volume) 3.9 mmol/L 3.6-5.0 Serum or plasma chloride measurement (moles/volume) 101 mmol/L 98-107 Carbon dioxide 22 mmol/L 21-32 Serum or plasma anion gap determination (moles/volume) 12 mmol/L 5-14 Serum or plasma urea nitrogen measurement (mass/volume) 18 mg/dL 7-18 Serum or plasma creatinine measurement (mass/volume) 0.79 mg/dL 0.60-1.30 Serum or plasma urea nitrogen/creatinine mass ratio 23 NRG Serum or plasma creatinine measurement with calculation of estimated glomerular filtration rate > NRG Serum or plasma glucose measurement (mass/volume) 91 mg/dL 70-105 Serum or plasma calcium measurement (mass/volume) 9.3 mg/dL 8.5-10.1 Serum or plasma total bilirubin measurement (mass/volume) 0.5 mg/dL 0.1-1.0 Serum or plasma alkaline phosphatase measurement (enzymatic activity/volume) 75 U/L 40-136 Serum or plasma aspartate aminotransferase measurement (enzymatic activity/ volume) 29 U/L 5-34 Serum or plasma alanine aminotransferase measurement (enzymatic activity/volume ) 23 U/L 0-55 Serum or plasma protein measurement (mass/volume) 6.1 g/dL 6.4-8.2 Serum or plasma albumin measurement (mass/volume) 3.6 g/dL 3.2-4.5 Capillary blood glucose measurement by glucometer (mass/volume) - 03/22/18 18: 29 Capillary blood glucose measurement by glucometer (mass/volume) 92 mg/dL 70-110 Complete blood count (CBC) with automated white blood cell (WBC) differential - 03/23/18 05:27 Blood leukocytes automated count (number/volume) 7.4 10*3/uL 4.3-11.0 Blood erythrocytes automated count (number/volume) 3.68 10*6/uL 4.35-5.85 Venous blood hemoglobin measurement (mass/volume) 12.0 g/dL 11.5-16.0 Blood hematocrit (volume fraction) 34 % 35-52 Automated erythrocyte mean corpuscular volume 92 [foz_us] 80-99 Automated erythrocyte mean corpuscular hemoglobin (mass per erythrocyte) 33 pg 25-34 Automated erythrocyte mean corpuscular hemoglobin concentration measurement ( mass/volume) 36 g/dL 32-36 Automated erythrocyte distribution width ratio 12.4 % 10.0-14.5 Automated blood platelet count (count/volume) 193 10*3/uL 130-400 Automated blood platelet mean volume measurement 10.6 [foz_us] 7.4-10.4 Automated blood neutrophils/100 leukocytes 40 % 42-75 Automated blood lymphocytes/100 leukocytes 47 % 12-44 Blood monocytes/100 leukocytes 12 % 0-12 Automated blood eosinophils/100 leukocytes 1 % 0-10 Automated blood basophils/100 leukocytes 0 % 0-10 Blood neutrophils automated count (number/volume) 3.0 10*3 1.8-7.8 Blood lymphocytes automated count (number/volume) 3.5 10*3 1.0-4.0 Blood monocytes automated count (number/volume) 0.9 10*3 0.0-1.0 Automated eosinophil count 0.0 10*3/uL 0.0-0.3 Automated blood basophil count (count/volume) 0.0 10*3/uL 0.0-0.1 Comprehensive metabolic panel - 03/23/18 05:27 Serum or plasma sodium measurement (moles/volume) 135 mmol/L 135-145 Serum or plasma potassium measurement (moles/volume) 3.2 mmol/L 3.6-5.0 Serum or plasma chloride measurement (moles/volume) 104 mmol/L 98-107 Carbon dioxide 19 mmol/L 21-32 Serum or plasma anion gap determination (moles/volume) 12 mmol/L 5-14 Serum or plasma urea nitrogen measurement (mass/volume) 15 mg/dL 7-18 Serum or plasma creatinine measurement (mass/volume) 0.70 mg/dL 0.60-1.30 Serum or plasma urea nitrogen/creatinine mass ratio 21 NRG Serum or plasma creatinine measurement with calculation of estimated glomerular filtration rate > NRG Serum or plasma glucose measurement (mass/volume) 80 mg/dL 70-105 Serum or plasma calcium measurement (mass/volume) 8.7 mg/dL 8.5-10.1 Serum or plasma total bilirubin measurement (mass/volume) 0.5 mg/dL 0.1-1.0 Serum or plasma alkaline phosphatase measurement (enzymatic activity/volume) 71 U/L 40-136 Serum or plasma aspartate aminotransferase measurement (enzymatic activity/ volume) 26 U/L 5-34 Serum or plasma alanine aminotransferase measurement (enzymatic activity/volume ) 20 U/L 0-55 Serum or plasma protein measurement (mass/volume) 5.6 g/dL 6.4-8.2 Serum or plasma albumin measurement (mass/volume) 3.4 g/dL 3.2-4.5 Complete urinalysis with reflex to culture - 03/23/18 05:32 Urine color determination YELLOW NRG Urine clarity determination CLEAR NRG Urine pH measurement by test strip 9 5-9 Specific gravity of urine by test [...] NORMAL Urine leukocyte esterase detection by dipstick 1+ NEGATIVE Automated urine sediment erythrocyte count by microscopy (number/high power field) RARE NRG Automated urine sediment leukocyte count by microscopy (number/high power field ) RARE NRG Bacteria detection in urine sediment by light microscopy NEGATIVE NRG Squamous epithelial cells detection in urine sediment by light microscopy 0-2 NRG Crystals detection in urine sediment by light microscopy NONE NRG Casts detection in urine sediment by light microscopy NONE NRG Mucus detection in urine sediment by light microscopy NEGATIVE NRG Complete urinalysis with reflex to culture NO NRG Complete blood count (CBC) with automated white blood cell (WBC) differential - 04/09/18 22:06 Blood leukocytes automated count (number/volume) 5.2 10*3/uL 4.3-11.0 Blood erythrocytes automated count (number/volume) 3.81 10*6/uL 4.35-5.85 Venous blood hemoglobin measurement (mass/volume) 12.3 g/dL 11.5-16.0 Blood hematocrit (volume fraction) 36 % 35-52 Automated erythrocyte mean corpuscular volume 95 [foz_us] 80-99 Automated erythrocyte mean corpuscular hemoglobin (mass per erythrocyte) 32 pg 25-34 Automated erythrocyte mean corpuscular hemoglobin concentration measurement ( mass/volume) 34 g/dL 32-36 Automated erythrocyte distribution width ratio 13.7 % 10.0-14.5 Automated blood platelet count (count/volume) 141 10*3/uL 130-400 Automated blood platelet mean volume measurement 10.0 [foz_us] 7.4-10.4 Automated blood neutrophils/100 leukocytes 54 % 42-75 Automated blood lymphocytes/100 leukocytes 36 % 12-44 Blood monocytes/100 leukocytes 9 % 0-12 Automated blood eosinophils/100 leukocytes 0 % 0-10 Automated blood basophils/100 leukocytes 0 % 0-10 Blood neutrophils automated count (number/volume) 2.8 10*3 1.8-7.8 Blood lymphocytes automated count (number/volume) 1.9 10*3 1.0-4.0 Blood monocytes automated count (number/volume) 0.5 10*3 0.0-1.0 Automated eosinophil count 0.0 10*3/uL 0.0-0.3 Automated blood basophil count (count/volume) 0.0 10*3/uL 0.0-0.1 Comprehensive metabolic panel - 04/09/18 22:06 Serum or plasma sodium measurement (moles/volume) 139 mmol/L 135-145 Serum or plasma potassium measurement (moles/volume) 4.0 mmol/L 3.6-5.0 Serum or plasma chloride measurement (moles/volume) 106 mmol/L 98-107 Carbon dioxide 23 mmol/L 21-32 Serum or plasma anion gap determination (moles/volume) 10 mmol/L 5-14 Serum or plasma urea nitrogen measurement (mass/volume) 12 mg/dL 7-18 Serum or plasma creatinine measurement (mass/volume) 0.62 mg/dL 0.60-1.30 Serum or plasma urea nitrogen/creatinine mass ratio 19 NRG Serum or plasma creatinine measurement with calculation of estimated glomerular filtration rate > NRG Serum or plasma glucose measurement (mass/volume) 64 mg/dL 70-105 Serum or plasma calcium measurement (mass/volume) 9.1 mg/dL 8.5-10.1 Serum or plasma total bilirubin measurement (mass/volume) 0.6 mg/dL 0.1-1.0 Serum or plasma alkaline phosphatase measurement (enzymatic activity/volume) 82 U/L 40-136 Serum or plasma aspartate aminotransferase measurement (enzymatic activity/ volume) 40 U/L 5-34 Serum or plasma alanine aminotransferase measurement (enzymatic activity/volume ) 26 U/L 0-55 Serum or plasma protein measurement (mass/volume) 5.8 g/dL 6.4-8.2 Serum or plasma albumin measurement (mass/volume) 3.4 g/dL 3.2-4.5 Complete urinalysis with reflex to culture - 04/09/18 22:40 Urine color determination JAMEY NRG Urine clarity determination CLEAR NRG Urine [...] Urine total bilirubin detection by test strip 1+ NEGATIVE Urine urobilinogen measurement by automated test strip (mass/volume) 4 mg/dL NORMAL Urine leukocyte esterase detection by dipstick 1+ NEGATIVE Automated urine sediment erythrocyte count by microscopy (number/high power field) NONE NRG Automated urine sediment leukocyte count by microscopy (number/high power field ) NONE NRG Bacteria detection in urine sediment by light microscopy NEGATIVE NRG Squamous epithelial cells detection in urine sediment by light microscopy 0-2 NRG Crystals detection in urine sediment by light microscopy NONE NRG Casts detection in urine sediment by light microscopy NONE NRG Mucus detection in urine sediment by light microscopy MODERATE NRG Complete urinalysis with reflex to culture NO NRG Encounters ACCT No. Visit Date/Time Discharge Status Pt. Type Provider Facility Loc./Unit Complaint [id number] 03/22/2018 19:58:00 03/24/2018 16:10:00 DIS Outpatient SELVIN BADILLO MD [facility] 4TH HYPOTENSION [id number] 02/25/2018 22:44:00 02/25/2018 23:59:59 CLS Outpatient FELISA NAVAS DO [facility] RAD TRAUMA [id number] 02/05/2018 02:01:00 02/05/2018 03:46:00 DIS Emergency GIOVANA SHARMA MD [facility] ER R HIP PAIN [id number] 11/30/2017 00:59:00 11/30/2017 02:53:00 DIS Emergency MARGO FLORES DO [facility] ER FALL [id number] 07/29/2017 21:33:00 07/29/2017 23:47:00 DIS Emergency MARGO FLORES DO [facility] ER CONSTIPATION [id number] 02/24/2017 12:05:00 02/24/2017 14:00:00 DIS Emergency MAUREEN KAYE APRN [facility] ER FALL,HEAD INJURY [id number] 08/26/2016 08:33:00 08/26/2016 10:50:00 DIS Emergency DEJUAN CASEY, RAGHU Lindsay [facility] ER FALL [id number] 06/29/2016 17:27:00 06/29/2016 19:00:00 DIS Emergency ZACHARY CASEY, GIOVANA Mejia [facility] ER FALL [id number] 07/21/2015 13:57:00 07/21/2015 23:59:59 CLS Outpatient BA NAVAS [facility] RAD LT BREAST PAIN [id number] 06/17/2015 06:00:00 06/18/2015 12:00:00 DIS Outpatient ROSY AGUILAR MD [facility] STRESS URINARY INCONTINENCE [id number] 06/12/2015 13:15:00 06/12/2015 23:59:59 CLS Outpatient ROSY AGUILAR MD [facility] PREOP STRESS URINARY INCONTINENCE [id number] 03/26/2015 15:21:00 03/26/2015 23:59:59 CLS Preadmit SHANE CASEY, RONEY Lindsay [facility] REHAB [id number] 10/30/2014 07:29:00 10/30/2014 23:59:59 CLS Outpatient BA NAVAS TACK WELDER [facility] RAD WORSENING PRESSURE , HYDROCEPHALUS [id number] 07/18/2014 13:28:00 07/18/2014 23:59:59 CLS Outpatient FELISA NAVAS DO [facility] RAD SCREENING [id number] 04/04/2014 18:25:00 04/04/2014 23:59:59 CLS Outpatient ADIS REED MD [facility] LAB DM [id number] 06/25/2013 14:45:00 06/25/2013 23:59:59 CLS Outpatient BA NAVAS [facility] RAD SCREENING [id number] 04/09/2018 22:20:00 Document Registration [id number] 11/18/2014 06:00:00 Document Registration [id number] 11/14/2014 09:00:00 Document Registration [id number] 10/09/2012 12:40:00 Document Registration [id number] 06/22/2012 14:28:00 Document Registration [id number] 06/20/2012 13:31:00 Document Registration [id number] 06/20/2012 11:01:00 Document Registration [id number] 03/24/2012 05:34:00 Document Registration [id number] 03/23/2012 10:27:00 Document Registration [id number] 03/14/2012 11:01:00 Document Registration [id number] 11/05/2011 10:08:00 Document Registration [id number] 05/26/2011 17:04:00 Document Registration [id number] 05/07/2011 10:01:00 Document Registration [id number] 05/06/2010 14:15:00 Document Registration [id number] 12/02/2009 16:33:00 Document Registration [id number] 05/23/2009 13:08:00 Document Registration [id number] 03/28/2009 10:30:00 Document Registration [id number] 03/25/2009 07:45:00 Document Registration [id number] 03/11/2009 07:05:00 Document Registration [id number] 03/06/2009 19:00:00 Document Registration
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
[2018-04-10 15:42] VITALS: BP 120/58
[2018-04-10 19:41] VITALS: BP 135/60
[2018-04-11 00:26] VITALS: BP 132/64
[2018-04-11 04:07] VITALS: BP 131/76
[2018-04-11 08:30] VITALS: BP 123/68
--- NOTE | 2018-04-11 11:21 | Progress Note-Hospitalist ---
Progress Note Progress Notes/Assess & Plan Date Seen 04/11/18 Time Seen by Provider: 11:18 Assessment & Plan The patient is sleeping soundly and deeply. Her vital signs are stable. Her care options have been explored. The plan at this point is to return home today. learning services coordinator is working with the relative to respite options in her care. Physical exam: Lungs are clear to auscultation. CV is regular without murmur. Abdomen is soft. Impression: Traumatic brain syndrome (1993). 2.progressive physical debility. Plan: See discharge sequence for meds and activities. SELVIN BADILLO MD Apr 11, 2018 11:21
--- NOTE | 2018-04-11 11:27 | Discharge Instructions ---
Discharge Instructions Patient Instructions Patient Instructions: Medications as listed on the discharge sequence. Resume activities as previously. policy services representative has provided you with possibilities for additional assistance in the home. Please explore these Activity & Diet Discharge Diet: No Restrictions SELVIN BADILLO MD Apr 11, 2018 11:27
--- NOTE | 2018-04-14 14:00 | Physician Query-Final Dx ---
Final Diagnosis Give Final Diagnosis Please give Final Diagnosis BA ZUNIGA Apr 14, 2018 14:00
== END 2018-04-11 11:25 | disposition home or self-care (01) ==
LOC: EDUNIT# 22:00 → ER 22:01 → 4TH 22:45
PROVIDERS: ADMIT Family Medicine; ATTEND Family Medicine
DX: R53.81 Other malaise (principal); Z87.820 Personal history of traumatic brain injury; F03.90 Unspecified dementia, unspecified severity, without behavioral disturbance, psychotic disturbance, mood disturbance, and anxiety; I10 Essential (primary) hypertension; E11.9 Type 2 diabetes mellitus without complications; E03.9 Hypothyroidism, unspecified; E78.00 Pure hypercholesterolemia, unspecified; K21.9 Gastro-esophageal reflux disease without esophagitis; G47.30 Sleep apnea, unspecified; Z79.82 Long term (current) use of aspirin
CPT/HCPCS: 36415; 51701; 80053; 81000; 85025; 96360; 96361; G0378